=== PATIENT | male | born 1970 | race Caucasian/White ===

== ENCOUNTER 2018-08-05 20:24 | Inpatient (IN) | payer OTHER ==
[2018-08-05] MEDS ORDERED: ALBUTEROL NEBULIZED 2.5 MG/3 ML INHALATION STA (20:43)
[2018-08-05] MEDS ORDERED: IPRATROPIUM 0.5 MG/2.5 ML NEBU INHALATION STA (20:43)
[2018-08-05] MEDS ORDERED: DEXAMETHASONE SOD PHOSPHATE 10 MG/ML 1 ML VIAL IV STA (20:43)
--- NOTE | 2018-08-05 20:43 | ED ---
General Adult HPI - General Chief complaint: Shortness of Breath Stated complaint: SOB Time Seen by Provider: 08/05/18 20:32 Source: EMS Mode of arrival: EMS Limitations: no limitations - History of Present Illness Initial comments: Dictation was produced using [employer] dictation software. please excuse any grammatical, word or spelling errors. Chief Complaint: 48-year-old male past nuchal history of diabetes, dyslipidemia hypertension and asthma presents with hypoxia. History of Present Illness: Patient's 48-year-old male he has been having sinus congestion and cough for the last one week. He was seen at urgent care along with his with similar symptoms. They checked his oxygen and found to be low with the level in the 80s. Patient does not use home oxygen. Patient otherwise has been feeling well. He has no pain complaints. Patient denies any chest pain. He is also concerned that he is urinary tract infection due to urinary retention. The ROS documented in this emergency department record has been reviewed and confirmed by me. Those systems with pertinent positive or negative responses have been documented in the HPI. All other systems are other negative and/or noncontributory. PHYSICAL EXAM: General Impression: Alert and oriented x3, not in acute distress HEENT: Normocephalic atraumatic, extra-ocular movements intact, pupils equal and reactive to light bilaterally, mucous membranes moist. Cardiovascular: Heart regular rate and rhythm, S1&S2 audible, no murmurs, rubs or gallops Chest: Bilateral lung wheezing Abdomen: Bowel sounds present, abdomen soft, non-tender, non-distended, no organomegaly Musculoskeletal: Pulses present and equal in all extremities, no peripheral edema Motor: no focal deficits noted Neurological: CN II-XII grossly intact, no focal motor or sensory deficits noted Skin: Intact with no visualized rashes Psych: Normal affect and mood ED course: 48-year-old male presents with hypoxia. Vital signs upon arrival shows 90% on 2 L nasal cannula.Laboratory evaluation obtained. CBC unremarkable. Coag panel unremarkable. Metabolic panel shows mild hypomagn esemia. Otherwise rest metabolic panel is unremarkable. Cardiac enzymes negative. Prematurity peptide is negative. Urinalysis negative. X-ray obtained showing right greater than left airspace opacities concerning for pneumonia. Given patient's clinical presentation there is concern that patient has pneumonia. Patient is persistently hypoxic and requiring supplemental oxygen. Given patient's degree of hypoxia we'll have patient admitted. He is given advice for community acquired pneumonia. Patient is understandable agreeable to disposition. Discussed patient case with Dr. Souza who is willing to accept admission. EKG interpretation: Ventricular rate 90, normal sinus rhythm, right bundle branch block, KY interval 150, QS 136, QTC 477. No KY prolongation, no QTC prolongation, no ST or T-wave changes noted. EKG compared to 03/17/2015 showing no changes. Overall, this EKG is unremarkable - Related Data Home Medications Medication Instructions Recorded Confirmed ALPRAZolam [Xanax] 1 mg PO BID PRN 03/17/15 08/05/18 Cholecalciferol [Vitamin D3] 4,000 unit PO QAM 03/17/15 08/05/18 Diltiazem HCl [Cardizem] 240 mg PO QAM 03/17/15 08/05/18 Gemfibrozil [Lopid] 600 mg PO BID 03/17/15 08/05/18 Hydrochlorothiazide [Hydrodiuril] 25 mg PO QAM 03/17/15 08/05/18 Omeprazole [PriLOSEC] 40 mg PO AC-BRKFST 03/17/15 08/05/18 Pravastatin Sodium [Pravachol] 20 mg PO HS 03/17/15 08/05/18 glipiZIDE XL [Glucotrol Xl] 10 mg PO PC-SUPPER 03/17/15 08/05/18 metFORMIN HCL 1,000 mg PO BID 03/17/15 08/05/18 risperiDONE [risperiDONE ODT] 2 mg PO HS 03/17/15 08/05/18 Cetirizine HCl 10 mg PO DAILY 08/05/18 08/05/18 Fluticasone Nasal [place] [Flonase 1 spray EA NOSTRIL DAILY PRN 08/05/18 08/05/18 Nasal [place]] Ketoconazole 2% Shampoo [Nizoral] 1 applic TOPICAL MOWEFR 08/05/18 08/05/18 Losartan Potassium 50 mg PO DAILY 08/05/18 08/05/18 [place]-3 Fatty Acids/Fish Oil [Fish 1 cap PO DAILY 08/05/18 08/05/18 Oil 1,000 mg Softgel] PARoxetine HCL [Paxil Cr] 37.5 mg PO DAILY 08/05/18 08/05/18 Ranitidine HCl 150 mg PO QAM 08/05/18 08/05/18 Sucralfate [Carafate] 1 gm PO BID PRN 08/05/18 08/05/18 Allergies Allergy/AdvReac Type Severity Reaction Status Date / Time Sulfa (Sulfonamide Allergy Rash/Hives Verified 08/05/18 20:57 Antibiotics) Review of Systems ROS Statement: Those systems with pertinent positive or pertinent negative responses have been documented in the HPI. ROS Other: All systems not noted in ROS Statement are negative. Past Medical History Past Medical History: Diabetes Mellitus, Hyperlipidemia, Hypertension History of Any Multi-Drug Resistant Organisms: None Reported Past Surgical History: Tonsillectomy Past Psychological History: Anxiety, Depression Smoking Status: Current every day smoker Past Alcohol Use History: None Reported Past Drug Use History: None Reported General Exam Limitations: no limitations Course Vital Signs 08/05/18 08/05/18 08/05/18 20:26 20:39 20:55 Temperature 98.8 F Pulse Rate 98 98 Respiratory 20 20 Rate Blood Pressure 141/77 118/84 O2 Sat by Pulse 93 L Oximetry 08/05/18 08/05/18 21:30 22:10 Temperature Pulse Rate 98 98 Respiratory Rate Blood Pressure O2 Sat by Pulse Oximetry Medical Decision Making - Lab Data Result diagrams: 08/05/18 20:36 08/05/18 21:32 Lab Results 08/05/18 08/05/18 08/05/18 Range/Units 20:36 20:36 20:36 WBC 10.1 (3.8-10.6) k/uL RBC 4.86 (4.30-5.90) m/uL Hgb 15.4 (13.0-17.5) gm/dL Hct 45.2 (39.0-53.0) % MCV 93.1 (80.0-100.0) fL MCH 31.6 (25.0-35.0) pg MCHC 34.0 (31.0-37.0) g/dL RDW 13.3 (11.5-15.5) % Plt Count 234 (150-450) k/uL Neutrophils % 57 % Lymphocytes % 30 % Monocytes % 7 % Eosinophils % 3 % Basophils % 1 % Neutrophils # 5.8 (1.3-7.7) k/uL Lymphocytes # 3.0 (1.0-4.8) k/uL Monocytes # 0.7 (0-1.0) k/uL Eosinophils # 0.3 (0-0.7) k/uL Basophils # 0.1 (0-0.2) k/uL PT 10.2 (9.0-12.0) sec INR 0.9 (<1.2) APTT 24.0 (22.0-30.0) sec Sodium (137-145) mmol/L Potassium (3.5-5.1) mmol/L Chloride (98-107) mmol/L Carbon Dioxide (22-30) mmol/L Anion Gap mmol/L BUN (9-20) mg/dL Creatinine (0.66-1.25) mg/dL Est GFR (CKD-EPI)AfAm (>60 ml/min/1.73 sqM) Est GFR (CKD-EPI)NonAf (>60 ml/min/1.73 sqM) Glucose (74-99) mg/dL Calcium (8.4-10.2) mg/dL Magnesium (1.6-2.3) mg/dL Total Bilirubin (0.2-1.3) mg/dL AST (17-59) U/L ALT (21-72) U/L Alkaline Phosphatase (38-126) U/L Troponin I (0.000-0.034) ng/mL NT-Pro-B Natriuret Pep pg/mL Total Protein (6.3-8.2) g/dL Albumin (3.5-5.0) g/dL Urine Color Light Yellow Urine Appearance Clear (Clear) Urine pH 6.0 (5.0-8.0) Ur Specific [place] 1.004 (1.001-1.035) Urine Protein Negative (Negative) Urine Glucose (UA) Negative (Negative) Urine Ketones Negative (Negative) Urine Blood Negative (Negative) Urine Nitrite Negative (Negative) Urine Bilirubin Negative (Negative) Urine Urobilinogen <2.0 (<2.0) mg/dL Ur Leukocyte Esterase Negative (Negative) 08/05/18 08/05/18 08/05/18 Range/Units 21:32 21:32 21:32 WBC (3.8-10.6) k/uL RBC (4.30-5.90) m/uL Hgb (13.0-17.5) gm/dL Hct (39.0-53.0) % MCV (80.0-100.0) fL MCH (25.0-35.0) pg MCHC (31.0-37.0) g/dL RDW (11.5-15.5) % Plt Count (150-450) k/uL Neutrophils % % Lymphocytes % % Monocytes % % Eosinophils % % Basophils % % Neutrophils # (1.3-7.7) k/uL Lymphocytes # (1.0-4.8) k/uL Monocytes # (0-1.0) k/uL Eosinophils # (0-0.7) k/uL Basophils # (0-0.2) k/uL PT (9.0-12.0) sec INR (<1.2) APTT (22.0-30.0) sec Sodium 136 L (137-145) mmol/L Potassium 4.1 (3.5-5.1) mmol/L Chloride 100 (98-107) mmol/L Carbon Dioxide 25 (22-30) mmol/L Anion Gap 11 mmol/L BUN 9 (9-20) mg/dL Creatinine 0.59 L (0.66-1.25) mg/dL Est GFR (CKD-EPI)AfAm >90 (>60 ml/min/1.73 sqM) Est GFR (CKD-EPI)NonAf >90 (>60 ml/min/1.73 sqM) Glucose 132 H (74-99) mg/dL Calcium 9.5 (8.4-10.2) mg/dL Magnesium 1.5 L (1.6-2.3) mg/dL Total Bilirubin 0.4 (0.2-1.3) mg/dL AST 23 (17-59) U/L ALT 41 (21-72) U/L Alkaline Phosphatase 67 (38-126) U/L Troponin I <0.012 (0.000-0.034) ng/mL NT-Pro-B Natriuret Pep 55 pg/mL Total Protein 6.9 (6.3-8.2) g/dL Albumin 4.3 (3.5-5.0) g/dL Urine Color Urine Appearance (Clear) Urine pH (5.0-8.0) Ur Specific [place] (1.001-1.035) Urine Protein (Negative) Urine Glucose (UA) (Negative) Urine Ketones (Negative) Urine Blood (Negative) Urine Nitrite (Negative) Urine Bilirubin (Negative) Urine Urobilinogen (<2.0) mg/dL Ur Leukocyte Esterase (Negative) Disposition Clinical Impression: Acute respiratory failure with hypoxia, Pneumonia Disposition: ADMITTED IP TO THIS HOSP Condition: Fair Referrals: Eris Jc MD [Primary Care Provider] - 1-2 days Decision Time: 23:23
[2018-08-05 20:59] LABS: Basophils # (A) 0.1 k/uL (0-0.2); Basophils % (A) 1 %; Eosinophils # (A) 0.3 k/uL (0-0.7); Eosinophils % (A) 3 %; HCT 45.2 % (39.0-53.0); HGB 15.4 gm/dL (13.0-17.5); Lymphocytes % (A) 30 %; MCH 31.6 pg (25.0-35.0); MCV 93.1 fL (80.0-100.0); Mean Platelet Volume 10.3; Monocytes # (A) 0.7 k/uL (0-1.0); Monocytes % (A) 7 %; Neutrophils # (A) 5.8 k/uL (1.3-7.7); Neutrophils % (A) 57 %; Platelet Count 234 k/uL (150-450); RBC 4.86 m/uL (4.30-5.90); RDW 13.3 % (11.5-15.5); WBC 10.1 k/uL (3.8-10.6)
[2018-08-05 21:04] LABS: Appearance,Urine Clear (Clear); Bilirubin,Urine Negative (Negative); Blood,Urine Negative (Negative); Color,Urine Light Yellow; Glucose,Urine (UA) Negative (Negative); Ketones,Urine Negative (Negative); Leukocyte Esterase,Urine Negative (Negative); Nitrite,Urine Negative (Negative); Protein,Urine Negative (Negative); Specific Gravity,Urine 1.004 (1.001-1.035); Urobilinogen,Urine <2.0 mg/dL (<2.0)
[2018-08-05 21:27] LABS: INR 0.9 (<1.2); Prothrombin Time 10.2 sec (9.0-12.0)
[2018-08-05 22:20] LABS: ALT 41 U/L (21-72); AST 23 U/L (17-59); Albumin 4.3 g/dL (3.5-5.0); Alkaline Phosphatase 67 U/L (38-126); Anion Gap 11 mmol/L; Blood Urea Nitrogen 9 mg/dL (9-20); Calcium 9.5 mg/dL (8.4-10.2); Carbon Dioxide 25 mmol/L (22-30); Chloride 100 mmol/L (98-107); Glucose 132 mg/dL (74-99); Magnesium 1.5 mg/dL (1.6-2.3); Potassium 4.1 mmol/L (3.5-5.1); Sodium 136 mmol/L (137-145); Total Bilirubin 0.4 mg/dL (0.2-1.3); Total Protein 6.9 g/dL (6.3-8.2)
--- NOTE | 2018-08-05 22:46 | XR ---
INDICATION: Difficulty breathing COMPARISON: CXR 03/17/15 FINDINGS: Frontal and lateral views of the chest are obtained. There is airspace opacity in the lower lobes, right greater than left, concerning for pneumonia in the proper clinical setting. There is no pleural effusion or pneumothorax. Cardiomediastinal silhouette and pulmonary vascularity are normal. Regional skeleton appears intact. IMPRESSION: Right greater than left lower lobe airspace opacities, concerning for pneumonia in the proper clinical setting.
[2018-08-05] MEDS ORDERED: AZITHROMYCIN 500 MG in SODIUM CHLORIDE 0.9% 250 ML IVPB STA (23:09)
[2018-08-05] MEDS ORDERED: PNEUMONIA PROTOCOL UTILIZED 1 EACH MISC PO PRN (23:24)
[2018-08-06] MEDS ORDERED: ALPRAZolam 1 MG TAB PO PRN (00:07)
[2018-08-06] MEDS ORDERED: IPRATROPIUM-ALBUTEROL 3 ML NEB INHALATION PRN (00:12)
--- NOTE | 2018-08-06 00:18 | P.HPIM ---
History of Present Illness H&P Date: 08/05/18 Chief Complaint: Shortness of breath and cough The patient is a morbidly obese 48-year-old male with a past medical history of asthma, type 2 diabetes, essential hypertension who was referred here from his [facility] urgent care clinic with chief complaints of cough and shortness of breath. Apparently the patient has been having a week of intermittently productive cough and worsening shortness of breath, chest congestion and sore throat and increasing usage of his rescue inhaler and updrafts at home, he reports subjective fevers chills night sweats. The patient reports increasing polyuria and nocturia but denies any dysuria or increasing thirst . The patient denies any chest pain, lower extremity swelling or palpitations. He denies any headaches slurred speech focal weakness or blurry vision. Apparently while at urgent care the patient was noted to have diminished oxygen saturations the SpO2 in the low 80s. He reports his has been having similar URI symptoms. In the ER the patient had a comprehensive workup, chest x-ray showed a right greater than left lower lobe airspace opacities. Serum sodium level was 136 magnesium 1.5, WBC count 10.1, hemoglobin 15.4, platelets 234. EKG showed sinus mechanism without any suggestion of acute ischemia. Patient was recommended for admission Review of Systems Pertinent positives per HPI all other review of systems otherwise negative Past Medical History Past Medical History: Diabetes Mellitus, Hyperlipidemia, Hypertension History of Any Multi-Drug Resistant Organisms: None Reported Past Surgical History: Tonsillectomy Past Psychological History: Anxiety, Depression Smoking Status: Current every day smoker Past Alcohol Use History: None Reported Past Drug Use History: None Reported Medications and Allergies Home Medications Medication Instructions Recorded Confirmed Type ALPRAZolam [Xanax] 1 mg PO BID PRN 03/17/15 08/05/18 History Cholecalciferol [Vitamin D3] 4,000 unit PO QAM 03/17/15 08/05/18 History Diltiazem HCl [Cardizem] 240 mg PO QAM 03/17/15 08/05/18 History Gemfibrozil [Lopid] 600 mg PO BID 03/17/15 08/05/18 History Hydrochlorothiazide [Hydrodiuril] 25 mg PO QAM 03/17/15 08/05/18 History Omeprazole [PriLOSEC] 40 mg PO AC-BRKFST 03/17/15 08/05/18 History Pravastatin Sodium [Pravachol] 20 mg PO HS 03/17/15 08/05/18 History glipiZIDE XL [Glucotrol Xl] 10 mg PO PC-SUPPER 03/17/15 08/05/18 History metFORMIN HCL 1,000 mg PO BID 03/17/15 08/05/18 History risperiDONE [risperiDONE ODT] 2 mg PO HS 03/17/15 08/05/18 History Cetirizine HCl 10 mg PO DAILY 08/05/18 08/05/18 History Fluticasone Nasal [place] [Flonase 1 spray EA NOSTRIL DAILY PRN 08/05/18 08/05/18 History Nasal [place]] Ketoconazole 2% Shampoo [Nizoral] 1 applic TOPICAL MOWEFR 08/05/18 08/05/18 History Losartan Potassium 50 mg PO DAILY 08/05/18 08/05/18 History [place]-3 Fatty Acids/Fish Oil [Fish 1 cap PO DAILY 08/05/18 08/05/18 History Oil 1,000 mg Softgel] PARoxetine HCL [Paxil Cr] 37.5 mg PO DAILY 08/05/18 08/05/18 History Ranitidine HCl 150 mg PO QAM 08/05/18 08/05/18 History Sucralfate [Carafate] 1 gm PO BID PRN 08/05/18 08/05/18 History Allergies Allergy/AdvReac Type Severity Reaction Status Date / Time Sulfa (Sulfonamide Allergy Rash/Hives Verified 08/05/18 20:57 Antibiotics) Physical Exam Vitals: Vital Signs Temp Pulse Resp BP Pulse Ox 08/05/18 22:10 98 08/05/18 21:30 98 08/05/18 20:55 98 08/05/18 20:39 20 118/84 08/05/18 20:26 98.8 F 98 20 141/77 93 L Intake and Output 08/05/18 08/05/18 08/06/18 14:59 22:59 06:59 Other: Weight 150.593 kg Constitutional: No acute distress, conversant, pleasant Eyes: Anicteric sclerae, moist conjunctiva, no lid-lag, PERRLA ENMT: NC/AT,Oropharynx clear, no erythema, exudates Neck:Supple, FROM, no masses, or JVD, No carotid bruits; No thyromegaly Lungs: Diminished in the bases, faint wheezes, poor aeration, satting 89% on 4 L nasal cannula, unlabored Cardiovascular: Heart regular in rate and rhythm, No murmurs, gallops, or rubs no peripheral edema Abdominal: Soft Nontender, nom distended, no guarding, no rebound or rigidity, Normoactive bowel sounds No hepatomegaly, No splenomegaly, No palpable mass No abdominal wall hernia noted Skin: Normal temperature, tone, texture, turgor, No induration No subcutaneous nodules, No rash, lesions, No ulcers Extremities:No digital cyanosis No clubbing, Pedal pulses intact and symmetrical Radial pulses intact and symmetrical Normal gait and station, No calf tenderness Psychiatric: Alert and oriented to person, place and time, Appropriate affect Intact judgement Neuro: Muscles Strength 5/5 in all 4 extremities, Sensation to light touch grossly present throughout, Cranial nerves II-XII grossly intact. No focal sensory deficits Results CBC & Chem 7: 08/05/18 20:36 08/05/18 21:32 Labs: Abnormal Lab Results - Last 24 Hours (Table) 08/05/18 Range/Units 21:32 Sodium 136 L (137-145) mmol/L Creatinine 0.59 L (0.66-1.25) mg/dL Glucose 132 H (74-99) mg/dL Magnesium 1.5 L (1.6-2.3) mg/dL Assessment and Plan (1) Acute respiratory failure with hypoxia Current Visit: Yes Status: Acute Code(s): J96.01 - ACUTE RESPIRATORY FAILURE WITH HYPOXIA SNOMED Code(s): 62703981 (2) Pneumonia Current Visit: Yes Status: Acute Code(s): J18.9 - PNEUMONIA, UNSPECIFIED ORGANISM SNOMED Code(s): 810544780 (3) Asthma exacerbation Current Visit: Yes Status: Acute Code(s): J45.901 - UNSPECIFIED ASTHMA WITH (ACUTE) EXACERBATION SNOMED Code(s): 927737631 (4) Type 2 diabetes mellitus with hyperglycemia Current Visit: Yes Status: Acute Code(s): E11.65 - TYPE 2 DIABETES MELLITUS WITH HYPERGLYCEMIA SNOMED Code(s): 504457256710535 (5) Hypomagnesemia Current Visit: Yes Status: Acute Code(s): E83.42 - HYPOMAGNESEMIA SNOMED Code(s): 334066596 Plan: The patient is placed on observation anticipated less than 2 midnight stay with acute respiratory failure with hypoxia in the setting of a community-acquired pneumonia and mild asthma exacerbation, the patient is continued on supplemental oxygen we'll wean to keep sats 90-92%, currently unlabored on 4 L nasal cannula. Initiate bronchodilator DuoNeb breathing treatments every 4 hours amd PRN with empiric IV antibiotics Rocephin and azithromycin, continue steroids with prednisone 40 mg by mouth daily, add mucinex. Continue home meds, initiate Accuchecks qachs with correctional insulin coverage. Will replace his magnesium and we'll continue to follow his clinical course CODE STATUS: Full code Discussed plan of care with: Patient and nurse Prophylaxis: SCDs and Lovenox and PPI therapy Anticipated discharge 1-2 day Time with Patient: Greater than 30
[2018-08-06] MEDS: MAGNESIUM SULFATE-D5W PMX 1 GM in DEXTROSE/WATER 1 100ML.BAG IVPB SCH ×3 (01:24→04:14)
[2018-08-06] MEDS: IPRATROPIUM-ALBUTEROL 3 ML NEB INHALATION SCH ×5 (05:14→21:26)
[2018-08-06 07:13] LABS: Glucose,Whole Blood 261 mg/dL (75-99)
[2018-08-06] MEDS: ENOXAPARIN 40 MG/0.4 ML SYRINGE SQ SCH (08:21)
[2018-08-06] MEDS: PANTOPRAZOLE 40 MG TABLET PO SCH (08:21)
[2018-08-06] MEDS: DILTIAZEM CD 240 MG CAP.ER.24H PO SCH (08:21)
[2018-08-06] MEDS: AZITHROMYCIN 500 MG TAB PO SCH (08:21)
[2018-08-06] MEDS: CHOLECALCIFEROL 1,000 UNIT TAB PO SCH (08:21)
[2018-08-06] MEDS: glipiZIDE 5 MG TAB PO SCH ×2 (08:21→17:25)
[2018-08-06] MEDS: PARoxetine 10 MG TAB PO SCH (08:22)
[2018-08-06] MEDS: metFORMIN 500 MG TAB PO SCH ×2 (08:22→21:24)
[2018-08-06] MEDS: LORATADINE 10 MG TAB PO SCH (08:22)
[2018-08-06] MEDS: guaiFENesin 600 MG TABLET.ER PO SCH ×2 (08:22→21:24)
[2018-08-06] MEDS: LOSARTAN 50 MG TAB PO SCH (08:22)
[2018-08-06] MEDS: HYDROCHLOROTHIAZIDE 25 MG TAB PO SCH (08:22)
[2018-08-06] MEDS: FENOFIBRATE 160 MG TAB PO SCH (08:22)
[2018-08-06] MEDS: KETOCONAZOLE 2% SHAMPOO 1 APPLIC/ML TOPICAL SCH (08:23)
[2018-08-06] MEDS: INSULIN ASPART (NovoLOG) 100 UNIT/ML VIAL SQ SCH ×4 (08:23→21:24)
[2018-08-06] MEDS ORDERED: SUCRALFATE 1 GM TAB PO PRN (09:00)
[2018-08-06] MEDS ORDERED: NON-FORMULARY DRUG (Omega-3 Fatty Acids/Fish Oil [Fish Oil 1,000 Mg Softgel] 1 CAP) PO SCH (09:00)
[2018-08-06] MEDS ORDERED: FLUTICASONE 50MCG/SPRAY NASAL 16GM EA NOSTRIL PRN (09:00)
[2018-08-06] MEDS ORDERED: predniSONE 20 MG TAB PO SCH (09:00)
[2018-08-06] MEDS ORDERED: NON-FORMULARY DRUG (Ranitidine Hcl [Ranitidine Hcl] 150 MG) PO SCH (09:00)
[2018-08-06 09:50] LABS: Basophils % (A) 0 %; Eosinophils % (A) 0 %; HCT 49.2 % (39.0-53.0); HGB 16.1 gm/dL (13.0-17.5); Lymphocytes # (A) 0.8 k/uL (1.0-4.8); Lymphocytes % (A) 9 %; MCH 31.6 pg (25.0-35.0); MCHC 32.7 g/dL (31.0-37.0); MCV 96.5 fL (80.0-100.0); Mean Platelet Volume 6.7; Monocytes # (A) 0.4 k/uL (0-1.0); Monocytes % (A) 4 %; Neutrophils # (A) 7.9 k/uL (1.3-7.7); Neutrophils % (A) 86 %; Platelet Count 253 k/uL (150-450); WBC 9.1 k/uL (3.8-10.6)
[2018-08-06 10:27] LABS: Anion Gap 13 mmol/L; Blood Urea Nitrogen 9 mg/dL (9-20); Calcium 9.5 mg/dL (8.4-10.2); Carbon Dioxide 27 mmol/L (22-30); Chloride 100 mmol/L (98-107); Glucose 250 mg/dL (74-99); Magnesium 2.4 mg/dL (1.6-2.3); Potassium 5.1 mmol/L (3.5-5.1); Sodium 140 mmol/L (137-145)
[2018-08-06] MEDS: methylPREDNISolone SOD SUCCI 125 MG/2 ML VIAL IV SCH ×2 (11:25→17:24)
[2018-08-06 12:02] LABS: Glucose,Whole Blood 184 mg/dL (75-99)
--- NOTE | 2018-08-06 15:57 | P.PN ---
Subjective Progress Note Date: 08/06/18 The patient was seen and examined at bedside on 08/06/2018. He reports continued mild shortness of breath with cough, which is improved since admission. He otherwise denied chest pain, nausea, vomiting, palpitations, fever, or chills. Objective - Vital Signs Vital signs: Vital Signs Temp 97.9 F 08/06/18 14:11 Pulse 93 08/06/18 14:11 Resp 18 08/06/18 14:11 BP 174/84 08/06/18 14:11 Pulse Ox 92 L 08/06/18 14:11 Intake & Output 08/05/18 08/06/18 08/06/18 18:59 06:59 18:59 Intake Total 1780 Balance 1780 Weight 150.593 kg Intake: Intake, IV Titration 700 Amount Azithromycin 500 mg In 250 Sodium Chloride 0.9% 250 ml @ 250 mls/hr IVPB ONCE STA Rx#:[id number] Magnesium Sulfate-D5w Pmx 400 1 gm In Dextrose/Water 1 100ml.bag @ 100 mls/hr IVPB Q1H CARMELLA Rx#: [id number] cefTRIAXone 1 gm In 50 Sodium Chloride 0.9% 50 ml @ 100 mls/hr IVPB ONCE STA Rx#:[id number] Oral 1080 Other: Voiding Method Toilet Toilet # Voids 2 2 - Exam General: Non-toxic, in no acute distress, appears stated age, morbidly obese HEENT: NC/AT, anicteric sclerae, moist conjunctiva, no lid-lag, PERRLA Cardiovascular: S1/S2 wnl, no murmurs, rubs, or gallops Lungs: Poor air entry bilaterally with wheezing appreciated, no accessory muscle use Abdominal: Soft, non-tender, non-distended, no guarding, rebound, or rigidity Skin: Warm, dry Extremities: No edema or contractures Psychiatric: Alert and oriented to person, place and time, appropriate affect Neuro: CN II-XII grossly intact, Strength 5/5 in all 4 extremities, Speech intact, Sensation to light touch grossly intact throughout - Labs CBC & Chem 7: 08/06/18 08:51 08/06/18 08:51 Labs: Abnormal Lab Results - Last 24 Hours (Table) 08/05/18 08/06/18 08/06/18 Range/Units 21:32 06:57 08:51 Neutrophils # 7.9 H (1.3-7.7) k/uL Lymphocytes # 0.8 L (1.0-4.8) k/uL Sodium 136 L (137-145) mmol/L Creatinine 0.59 L (0.66-1.25) mg/dL Glucose 132 H (74-99) mg/dL POC Glucose (mg/dL) 261 H (75-99) mg/dL Magnesium 1.5 L (1.6-2.3) mg/dL 08/06/18 08/06/18 Range/Units 08:51 11:43 Neutrophils # (1.3-7.7) k/uL Lymphocytes # (1.0-4.8) k/uL Sodium (137-145) mmol/L Creatinine 0.53 L (0.66-1.25) mg/dL Glucose 250 H (74-99) mg/dL POC Glucose (mg/dL) 184 H (75-99) mg/dL Magnesium 2.4 H (1.6-2.3) mg/dL Assessment and Plan Plan: Acute hypoxic respiratory failure secondary to asthma exacerbation and community acquired pneumonia -Continue with antibiotics, azithromycin and Cefdinir -Switched to IV Solu-Medrol 60 mg every 6 hourly due to significantly poor air entry on examination -Continue supplemental oxygen -Continue with DuoNeb's [id number] and as needed -Continue with Flonase Chronic conditions; hypertension, hyperlipidemia, diabetes mellitus -Continue with home medications DVT//GI prophylaxis -Lovenox -Protonix Discussed with: Patient Anticipated discharge date: 08/08/[address]: Home A total of 35 minutes was spent on the care of this complex patient more than 50% of the time was spent in counseling and care coordination.
[2018-08-06 17:12] LABS: Glucose,Whole Blood 259 mg/dL (75-99)
[2018-08-06 21:09] LABS: Glucose,Whole Blood 262 mg/dL (75-99)
[2018-08-06] MEDS: PRAVASTATIN SODIUM 20 MG TAB PO SCH (21:24)
[2018-08-06] MEDS: CEFDINIR 300 MG CAP PO SCH (21:24)
[2018-08-06] MEDS: risperiDONE ODT 2 MG TAB PO SCH (21:30)
[2018-08-07] MEDS: methylPREDNISolone SOD SUCCI 125 MG/2 ML VIAL IV SCH ×4 (00:54→17:50)
[2018-08-07] MEDS: IPRATROPIUM-ALBUTEROL 3 ML NEB INHALATION SCH ×6 (00:54→20:31)
[2018-08-07 07:00] LABS: Glucose,Whole Blood 255 mg/dL (75-99)
[2018-08-07 08:26] LABS: HCT 46.5 % (39.0-53.0); HGB 15.5 gm/dL (13.0-17.5); MCH 31.7 pg (25.0-35.0); MCHC 33.3 g/dL (31.0-37.0); MCV 95.2 fL (80.0-100.0); Mean Platelet Volume 6.7; Platelet Count 253 k/uL (150-450); RBC 4.89 m/uL (4.30-5.90); RDW 12.9 % (11.5-15.5); WBC 12.3 k/uL (3.8-10.6)
[2018-08-07 09:05] LABS: Anion Gap 10 mmol/L; Blood Urea Nitrogen 14 mg/dL (9-20); Calcium 9.8 mg/dL (8.4-10.2); Carbon Dioxide 29 mmol/L (22-30); Chloride 100 mmol/L (98-107); Glucose 258 mg/dL (74-99); Potassium 4.6 mmol/L (3.5-5.1); Sodium 139 mmol/L (137-145)
[2018-08-07] MEDS: INSULIN ASPART (NovoLOG) 100 UNIT/ML VIAL SQ SCH ×4 (10:27→22:23)
[2018-08-07] MEDS: PANTOPRAZOLE 40 MG TABLET PO SCH (10:28)
[2018-08-07] MEDS: glipiZIDE 5 MG TAB PO SCH ×2 (10:28→17:51)
[2018-08-07] MEDS: AZITHROMYCIN 500 MG TAB PO SCH (10:29)
[2018-08-07] MEDS: CHOLECALCIFEROL 1,000 UNIT TAB PO SCH (10:29)
[2018-08-07] MEDS: LORATADINE 10 MG TAB PO SCH (10:30)
[2018-08-07] MEDS: FENOFIBRATE 160 MG TAB PO SCH (10:30)
[2018-08-07] MEDS: HYDROCHLOROTHIAZIDE 25 MG TAB PO SCH (10:30)
[2018-08-07] MEDS: ENOXAPARIN 40 MG/0.4 ML SYRINGE SQ SCH (10:30)
[2018-08-07] MEDS: DILTIAZEM CD 240 MG CAP.ER.24H PO SCH (10:30)
[2018-08-07] MEDS: guaiFENesin 600 MG TABLET.ER PO SCH ×2 (10:30→22:20)
[2018-08-07] MEDS: LOSARTAN 50 MG TAB PO SCH (10:31)
[2018-08-07] MEDS: PARoxetine 10 MG TAB PO SCH (10:31)
[2018-08-07] MEDS: metFORMIN 500 MG TAB PO SCH ×2 (10:31→22:20)
[2018-08-07] MEDS: CEFDINIR 300 MG CAP PO SCH ×2 (10:35→22:20)
[2018-08-07 11:44] LABS: Glucose,Whole Blood 268 mg/dL (75-99)
--- NOTE | 2018-08-07 14:36 | P.PN ---
Subjective Progress Note Date: 08/07/18 The patient was seen and examined at bedside on 08/07/2018. The patient notes that his shortness of breath has improved since admission though he continues to require oxygen with minimal exertion. He otherwise denied chest pain, palpitations, abdominal pain, nausea, vomiting, fever, or chills. Objective - Vital Signs Vital signs: Vital Signs Temp 98.3 F 08/07/18 07:00 Pulse 90 08/07/18 11:19 Resp 16 08/07/18 08:17 BP 166/70 08/07/18 07:00 Pulse Ox 92 L 08/07/18 07:00 Intake & Output 08/06/18 08/07/18 08/07/18 18:59 06:59 18:59 Intake Total 540 Balance 540 Intake: Oral 540 Other: Voiding Method Toilet Toilet Toilet # Voids 2 1 - Exam General: Non-toxic, in no acute distress, appears stated age, morbidly obese HEENT: NC/AT, anicteric sclerae, moist conjunctiva, no lid-lag, PERRLA Cardiovascular: S1/S2 wnl, no murmurs, rubs, or gallops Lungs: improved aeration w/ wheezing appreciated, no accessory muscle use Abdominal: Soft, non-tender, non-distended, no guarding, rebound, or rigidity Skin: Warm, dry Extremities: No edema or contractures Psychiatric: Alert and oriented to person, place and time, appropriate affect Neuro: CN II-XII grossly intact, Strength 5/5 in all 4 extremities, Speech intact, Sensation to light touch grossly intact throughout - Labs CBC & Chem 7: 08/07/18 07:50 08/07/18 07:50 Labs: Abnormal Lab Results - Last 24 Hours (Table) 08/06/18 08/06/18 08/07/18 Range/Units 17:09 21:07 06:58 WBC (3.8-10.6) k/uL Creatinine (0.66-1.25) mg/dL Glucose (74-99) mg/dL POC Glucose (mg/dL) 259 H 262 H 255 H (75-99) mg/dL 08/07/18 08/07/18 08/07/18 Range/Units 07:50 07:50 11:42 WBC 12.3 H (3.8-10.6) k/uL Creatinine 0.52 L (0.66-1.25) mg/dL Glucose 258 H (74-99) mg/dL POC Glucose (mg/dL) 268 H (75-99) mg/dL Microbiology - Last 24 Hours (Table) 08/05/18 21:04 Blood Culture - Preliminary Blood No Growth after 24 hours Assessment and Plan Plan: Acute hypoxic respiratory failure secondary to asthma exacerbation and community acquired pneumonia -Continue with antibiotics, azithromycin and Cefdinir -C/w Solumedrol 60 mg q6h -Continue supplemental oxygen -Continue with DuoNeb's [id number] and as needed -Continue with Flonase Chronic conditions; hypertension, hyperlipidemia, diabetes mellitus -Continue with home medications DVT//GI prophylaxis -Lovenox -Protonix Discussed with: Patient Anticipated discharge date: 08/08/[address]: Home A total of 35 minutes was spent on the care of this complex patient more than 50% of the time was spent in counseling and care coordination.
[2018-08-07 16:52] LABS: Glucose,Whole Blood 196 mg/dL (75-99)
[2018-08-07 20:26] LABS: Glucose,Whole Blood 225 mg/dL (75-99)
[2018-08-07] MEDS: PRAVASTATIN SODIUM 20 MG TAB PO SCH (22:20)
[2018-08-07] MEDS: risperiDONE ODT 2 MG TAB PO SCH (22:20)
[2018-08-08] MEDS: IPRATROPIUM-ALBUTEROL 3 ML NEB INHALATION SCH ×5 (00:51→15:28)
[2018-08-08] MEDS: methylPREDNISolone SOD SUCCI 125 MG/2 ML VIAL IV SCH ×3 (00:56→11:22)
[2018-08-08 01:44] VITALS: RESP 15
[2018-08-08 06:46] LABS: Glucose,Whole Blood 272 mg/dL (75-99)
[2018-08-08] MEDS: INSULIN ASPART (NovoLOG) 100 UNIT/ML VIAL SQ SCH ×2 (08:07→11:43)
[2018-08-08] MEDS: LOSARTAN 50 MG TAB PO SCH (08:09)
[2018-08-08] MEDS: ENOXAPARIN 40 MG/0.4 ML SYRINGE SQ SCH (08:09)
[2018-08-08] MEDS: PANTOPRAZOLE 40 MG TABLET PO SCH (08:09)
[2018-08-08] MEDS: HYDROCHLOROTHIAZIDE 25 MG TAB PO SCH (08:09)
[2018-08-08] MEDS: CHOLECALCIFEROL 1,000 UNIT TAB PO SCH (08:09)
[2018-08-08] MEDS: metFORMIN 500 MG TAB PO SCH (08:09)
[2018-08-08] MEDS: glipiZIDE 5 MG TAB PO SCH (08:09)
[2018-08-08] MEDS: CEFDINIR 300 MG CAP PO SCH (08:10)
[2018-08-08] MEDS: DILTIAZEM CD 240 MG CAP.ER.24H PO SCH (08:10)
[2018-08-08] MEDS: FENOFIBRATE 160 MG TAB PO SCH (08:10)
[2018-08-08] MEDS: LORATADINE 10 MG TAB PO SCH (08:10)
[2018-08-08] MEDS: AZITHROMYCIN 500 MG TAB PO SCH (08:10)
[2018-08-08] MEDS: PARoxetine 10 MG TAB PO SCH (08:11)
[2018-08-08] MEDS: KETOCONAZOLE 2% SHAMPOO 1 APPLIC/ML TOPICAL SCH (08:12)
[2018-08-08] MEDS: guaiFENesin 600 MG TABLET.ER PO SCH (08:17)
--- NOTE | 2018-08-08 10:23 | P.DS ---
Providers Date of admission: 08/05/18 23:24 Expected date of discharge: 08/08/18 Attending physician: Enzo Tiwari MD Primary care physician: Eris Rod Babita [facility] Course: This is a 48-year-old male with a past medical history of COPD, history of 30-40 pack years smoking, hypertension and diabetes mellitus who presented to the ED for shortness of breath. The patient also had reported intermittent productive cough with chest congestion, sore throat, and increasing use of his rescue inhalers along with subjective fever and chills. The patient was previously evaluated at an urgent care center where apparently he had SpO2 in the low 80s and he was thereby brought to the ED. The patient underwent an extensive evaluation in the ED and had a chest x-ray with right greater than left lower lobe airspace opacities, suspicious for pneumonia. Patient was also noted to have bilateral wheezing and hypoxia, to 93% while on 4 L of nasal cannula. The patient was subsequently admitted to the medicine service for continued acquired pneumonia and a COPD exacerbation. He was started on antibiotics and placed on IV Solu-Medrol. The patient's breathing gradually improved though he continued to require oxygen. Patient was seen and examined at the bedside on 08/08/2018, at the day of discharge. He reports that his breathing is improved significantly since admission and his cough is also decreased. Discussed with the patient continued requirement for oxygen. The patient expressed eagerness to be discharged home and was in agreement with the plan to continue to use the nasal cannula oxygen upon discharge and with subsequent follow-up with a pulmonary physician as an outpatient along with his PCP to reassess for need for oxygen. The patient is presently stable and ready for discharge to home with oral antibiotics and a steroid burst taper. Physical Examination General: Non-toxic, in no acute distress, appears stated age, obese HEENT: NC/AT, anicteric sclerae, moist conjunctiva, no lid-lag, PERRLA Cardiovascular: S1/S2 wnl, no murmurs, rubs, or gallops Lungs: Clear to auscultation, normal respiratory effort, no accessory muscle use Abdominal: Soft, non-tender, non-distended, no guarding, rebound, or rigidity Skin: Warm, dry Extremities: No edema or contractures Psychiatric: Alert and oriented to person, place and time, appropriate affect Neuro: CN II-XII grossly intact, Strength 5/5 in all 4 extremities, Speech intact, Sensation to light touch grossly intact throughout Discharge diagnosis: Hypoxic respiratory failure secondary to COPD exacerbation and community-acquired pneumonia, diabetes mellitus with hyperglycemia, hypertension A total of 40 minutes of time were spent preparing this complex discharge summary. Patient Condition at Discharge: Good Plan - Discharge Summary Discharge Rx Participant: No New Discharge Prescriptions: New Albuterol Sulfate [Albuterol Sulfate Hfa] 1 puff PO Q4H #1 inhaler Amoxic-Pot Clav 875-125Mg [Augmentin 875-125] 1 tab PO BID 2 Days #4 tab guaiFENesin [Mucinex] 1,200 mg PO Q12HR #14 tablet.er predniSONE 0 mg PO DIRECTED #30 tab Budesonide-Formot 160-4.5 Mcg [Symbicort 160-4.5 Mcg Inhaler] 2 puff INHALATION BID #1 inhaler Continue risperiDONE [risperiDONE ODT] 2 mg PO HS ALPRAZolam [Xanax] 1 mg PO BID PRN PRN Reason: Anxiety glipiZIDE XL [Glucotrol XL] 10 mg PO PC-SUPPER metFORMIN HCL 1,000 mg PO BID Pravastatin Sodium [Pravachol] 20 mg PO HS Gemfibrozil [Lopid] 600 mg PO BID Cholecalciferol [Vitamin D3 (25 Mcg = 1000 Iu)] 4,000 unit PO QAM Omeprazole [PriLOSEC] 40 mg PO AC-BRKFST Hydrochlorothiazide [Hydrodiuril] 25 mg PO QAM Diltiazem HCl [Cardizem] 240 mg PO QAM Sucralfate [Carafate] 1 gm PO BID PRN PRN Reason: Gi Upset Ranitidine HCl 150 mg PO QAM PARoxetine HCL [Paxil Cr] 37.5 mg PO DAILY Losartan Potassium 50 mg PO DAILY Ketoconazole 2% Shampoo [Nizoral] 1 applic TOPICAL MOWEFR [place]-3 Fatty Acids/Fish Oil [Fish Oil 1,000 mg Softgel] 1 cap PO DAILY Fluticasone Nasal [place] [Flonase Nasal [place]] 1 spray EA NOSTRIL DAILY PRN PRN Reason: Nasal Congestion Cetirizine HCl 10 mg PO DAILY Discharge Medication List ALPRAZolam [Xanax] 1 mg PO BID PRN 03/17/15 [History] Cholecalciferol [Vitamin D3 (25 Mcg = 1000 Iu)] 4,000 unit PO QAM 03/17/15 [History] Diltiazem HCl [Cardizem] 240 mg PO QAM 03/17/15 [History] Gemfibrozil [Lopid] 600 mg PO BID 03/17/15 [History] Hydrochlorothiazide [Hydrodiuril] 25 mg PO QAM 03/17/15 [History] Omeprazole [PriLOSEC] 40 mg PO AC-BRKFST 03/17/15 [History] Pravastatin Sodium [Pravachol] 20 mg PO HS 03/17/15 [History] glipiZIDE XL [Glucotrol XL] 10 mg PO PC-SUPPER 03/17/15 [History] metFORMIN HCL 1,000 mg PO BID 03/17/15 [History] risperiDONE [risperiDONE ODT] 2 mg PO HS 03/17/15 [History] Cetirizine HCl 10 mg PO DAILY 08/05/18 [History] Fluticasone Nasal [place] [Flonase Nasal [place]] 1 spray EA NOSTRIL DAILY PRN 08/05/18 [History] Ketoconazole 2% Shampoo [Nizoral] 1 applic TOPICAL MOWEFR 08/05/18 [History] Losartan Potassium 50 mg PO DAILY 08/05/18 [History] [place]-3 Fatty Acids/Fish Oil [Fish Oil 1,000 mg Softgel] 1 cap PO DAILY 08/05/18 [History] PARoxetine HCL [Paxil Cr] 37.5 mg PO DAILY 08/05/18 [History] Ranitidine HCl 150 mg PO QAM 08/05/18 [History] Sucralfate [Carafate] 1 gm PO BID PRN 08/05/18 [History] Albuterol Sulfate [Albuterol Sulfate Hfa] 1 puff PO Q4H #1 inhaler 08/08/18 [Rx] Amoxic-Pot Clav 875-125Mg [Augmentin 875-125] 1 tab PO BID 2 Days #4 tab 08/08/18 [Rx] Budesonide-Formot 160-4.5 Mcg [Symbicort 160-4.5 Mcg Inhaler] 2 puff INHALATION BID #1 inhaler 08/08/18 [Rx] guaiFENesin [Mucinex] 1,200 mg PO Q12HR #14 tablet.er 08/08/18 [Rx] predniSONE 0 mg PO DIRECTED #30 tab 08/08/18 [Rx] Follow up Appointment(s)/Referral(s): Eris Jc MD [Primary Care Provider] - 1-2 days Erika Paris MD [STAFF PHYSICIAN] - 1 Week Discharge Disposition: HOME SELF-CARE
[2018-08-08 11:35] LABS: Glucose,Whole Blood 263 mg/dL (75-99)
[2018-08-08 15:46] VITALS: BP 146/89; PULSE 103; TEMP 97.7
--- NOTE | 2018-08-12 05:55 | CDI ---
Documentation Clarification Form Date: 08/12/2018 From: Enrique Camarillo Phone: call to [phone] Admit Date: 08/05/2018 11:24:00 PM Patient Name: Memo Noel Visit Number: [id number] Discharge Date: 08/08/2018 3:56:00 PM ATTENTION: The Clinical Documentation Specialists (CDI) and [facility] Coding Staff appreciate your assistance in clarifying documentation. Please respond to the clarification below the line at the bottom and electronically sign. The CDI & [facility] Coding staff will review the response and follow-up if needed. Please note: Queries are made part of the Legal Health Record. If you have any questions, please contact the author of this message via ITS. Dr. Joaquim Quiroga Asthma is documented in the H&P,Progress notes 08/06&08/07 as Asthma exacerbation and in Discharge summary stating COPD exacebation. History/risk factors: smoker,copd Treatment: Duonebs,Steroids In your professional opinion, can you please further specify the following, if known? With Acute Asthma Exacerbation COPD (specify with or without exacerbation) Both(COPD Exacerbation& Asthma Exacebation) Other, please specify ___ Unable to determine Severity for Asthma Mild intermittent Mild persistent Moderate persistent Severe persistent Other, please specify ____ Unable to determine COPD with acute exacerbation MTDD
== END 2018-08-08 15:56 | disposition home or self-care (01) | DRG 193 ==
LOC: EC 20:24 → 4SSUR 23:24
PROVIDERS: ADMIT Family Medicine; ATTEND Family Medicine
DX: J18.9 Pneumonia, unspecified organism (principal); J96.01 Acute respiratory failure with hypoxia; Z68.42 Body mass index [BMI] 45.0-49.9, adult; J44.1 Chronic obstructive pulmonary disease with (acute) exacerbation; E78.5 Hyperlipidemia, unspecified; E11.65 Type 2 diabetes mellitus with hyperglycemia; E83.42 Hypomagnesemia; E66.01 Morbid (severe) obesity due to excess calories; F32.9 Major depressive disorder, single episode, unspecified; I10 Essential (primary) hypertension; F41.9 Anxiety disorder, unspecified; F17.200 Nicotine dependence, unspecified, uncomplicated; I45.10 Unspecified right bundle-branch block; Z79.899 Other long term (current) drug therapy; Z88.2 Allergy status to sulfonamides; Z90.89 Acquired absence of other organs; Z79.84 Long term (current) use of oral hypoglycemic drugs; Z82.49 Family history of ischemic heart disease and other diseases of the circulatory system
CPT/HCPCS: 36415; 71046; 80048; 80053; 81003; 83735; 83880; 84484; 85025; 85027; 85610; 85730; 87040; 93005; 94640; 94644; 94760; 96365; 96368; 96375; 99285

== ENCOUNTER 2018-09-03 18:44 | Observation (INO) | payer OTHER ==
[2018-09-03] MEDS ORDERED: NITROGLYCERIN OINT 1 INCH/GM PACKET TOPICAL STA (20:39)
[2018-09-03] MEDS ORDERED: ASPIRIN 81 MG PO STA (20:39)
--- NOTE | 2018-09-03 20:43 | ED ---
General Adult HPI - General Chief complaint: Shortness of Breath Stated complaint: TERRY Time Seen by Provider: 09/03/18 19:25 Source: patient, RN notes reviewed Mode of arrival: wheelchair Limitations: no limitations - History of Present Illness Initial comments: This is a 48-year-old male who presents emergency Department complaining of a three-day history of shortness of breath and chest heaviness. Patient states the episodes last about an hour at a time and they typically have occurred at least twice a day for the last 3 days. Patient states he also has tingling in both arms when these episodes occur. Patient states she's also very weak on his feet when these are occurring. Patient denies any lightheadedness or dizziness. Patient denies any headache or numbness or weakness. Patient denies any abdominal pain patient denies any vomiting or diarrhea. Patient denies any diaphoretic episodes. - Related Data Home Medications Medication Instructions Recorded Confirmed ALPRAZolam [Xanax] 1 mg PO BID PRN 03/17/15 09/03/18 Cholecalciferol [Vitamin D3 (25 4,000 unit PO QAM 03/17/15 09/03/18 Mcg = 1000 Iu)] Diltiazem HCl [Cardizem] 240 mg PO QAM 03/17/15 09/03/18 Gemfibrozil [Lopid] 600 mg PO BID 03/17/15 09/03/18 Hydrochlorothiazide [Hydrodiuril] 25 mg PO QAM 03/17/15 09/03/18 Omeprazole [PriLOSEC] 40 mg PO AC-BRKFST 03/17/15 09/03/18 Pravastatin Sodium [Pravachol] 20 mg PO HS 03/17/15 09/03/18 glipiZIDE XL [Glucotrol XL] 10 mg PO PC-SUPPER 03/17/15 09/03/18 metFORMIN HCL 1,000 mg PO BID 03/17/15 09/03/18 risperiDONE [risperiDONE ODT] 2 mg PO HS 03/17/15 09/03/18 Cetirizine HCl 10 mg PO DAILY 08/05/18 09/03/18 Fluticasone Nasal [place] [Flonase 1 spray EA NOSTRIL DAILY PRN 08/05/18 09/03/18 Nasal [place]] Ketoconazole 2% Shampoo [Nizoral] 1 applic TOPICAL MOWEFR 08/05/18 09/03/18 Losartan Potassium 50 mg PO DAILY 08/05/18 09/03/18 [place]-3 Fatty Acids/Fish Oil [Fish 1 cap PO DAILY 08/05/18 09/03/18 Oil 1,000 mg Softgel] PARoxetine HCL [Paxil Cr] 37.5 mg PO DAILY 08/05/18 09/03/18 Ranitidine HCl 150 mg PO QAM 08/05/18 09/03/18 Sucralfate [Carafate] 1 gm PO BID PRN 08/05/18 09/03/18 Albuterol Sulfate [Albuterol 1 puff INHALATION RT-Q4H PRN 09/03/18 09/03/18 Sulfate Hfa] Budesonide-Formot 160-4.5 Mcg 2 puff INHALATION RT-BID 09/03/18 09/03/18 [Symbicort 160-4.5 Mcg Inhaler] Previous Rx's Medication Instructions Recorded guaiFENesin [Mucinex] 1,200 mg PO Q12HR #14 tablet.er 08/08/18 Allergies Allergy/AdvReac Type Severity Reaction Status Date / Time Sulfa (Sulfonamide Allergy Rash/Hives Verified 09/03/18 20:49 Antibiotics) Review of Systems ROS Statement: Those systems with pertinent positive or pertinent negative responses have been documented in the HPI. ROS Other: All systems not noted in ROS Statement are negative. Past Medical History Past Medical History: Asthma, Diabetes Mellitus, Hyperlipidemia, Hypertension, Pneumonia, Sleep Apnea/CPAP/BIPAP History of Any Multi-Drug Resistant Organisms: None Reported Past Surgical History: Tonsillectomy Past Anesthesia/Blood Transfusion Reactions: No Reported Reaction Past Psychological History: Anxiety, Depression Smoking Status: Current every day smoker Past Alcohol Use History: None Reported Past Drug Use History: None Reported - Past Family History Mother Family Medical History: Coronary Artery Disease (CAD) Additional Family Medical History / Comment(s): Father Family Medical History: AFIB Additional Family Medical History / Comment(s): Sister(s) Family Medical History: Neurologic Disorder Additional Family Medical History / Comment(s): 1 sister had mental disorder - . 1 sister has osteoporosis Brother(s) Family Medical History: AFIB General Exam - General Exam Comments Initial Comments: GENERAL: Patient is well-developed and well-nourished. Patient is nontoxic and well-hy drated and is in mild distress. ENT: Neck is soft and supple. No significant lymphadenopathy is noted. Oropharynx is clear. Moist mucous membranes. Neck has full range of motion without eliciting any pain. EYES: The sclera were anicteric and conjunctiva were pink and moist. Extraocular movements were intact and pupils were equal round and reactive to light. Eyelids were unremarkable. PULMONARY: Unlabored respirations. Good breath sounds bilaterally. No audible rales rhonchi or wheezing was noted. CARDIOVASCULAR: There is a regular rate and rhythm without any murmurs gallops or rubs. ABDOMEN: Soft and nontender with normal bowel sounds. SKIN: Skin is clear with no lesions or rashes and otherwise unremarkable. NEUROLOGIC: Patient is alert and oriented x3. Cranial nerves II through XII are grossly intact. Motor and sensory are also intact. Normal speech, volume and content. Symmetrical smile. MUSCULOSKELETAL: Normal extremities with adequate strength and full range of motion. LYMPHATICS: No significant lymphadenopathy is noted PSYCHIATRIC: Normal psychiatric evaluation. Limitations: no limitations Course Vital Signs 09/03/18 19:26 Temperature 98.6 F Pulse Rate 76 Respiratory 18 Rate Blood Pressure 127/82 O2 Sat by Pulse 98 Oximetry Medical Decision Making - Medical Decision Making EKG shows normal sinus rhythm at 79 bpm OR interval is on a 62 QRS is under 26 QT interval 396 QTC is 454. Patient's EKG shows no ST segment elevation or depression or T wave abnormalities are noted. cHEST X-RAY SHOWS NO ACUTE ABNORMALITY. i STARTED THE PATIENT ON HEPARIN FOR THE unstable angina picture. I gave the patient aspirin and Nitropaste. I spoke with sounds physician's name agreed to admit the patient I admitted the patient and wrote admitting orders I continued heparin after Nitropaste on the floor. I also consult cardiology. - Lab Data Result diagrams: 09/03/18 20:01 09/03/18 20: Lab Results 09/03/18 09/03/18 09/03/18 Range/Units 20:01 20:01 20: WBC 10.6 (3.8-10.6) k/uL RBC 4.96 (4.30-5.90) m/uL Hgb 15.0 (13.0-17.5) gm/dL Hct 45.8 (39.0-53.0) % MCV 92.3 (80.0-100.0) fL MCH 30.2 (25.0-35.0) pg MCHC 32.7 (31.0-37.0) g/dL RDW 12.7 (11.5-15.5) % Plt Count 258 (150-450) k/uL Neutrophils % 54 % Lymphocytes % 33 % Monocytes % 7 % Eosinophils % 3 % Basophils % 1 % Neutrophils # 5.7 (1.3-7.7) k/uL Lymphocytes # 3.5 (1.0-4.8) k/uL Monocytes # 0.7 (0-1.0) k/uL Eosinophils # 0.4 (0-0.7) k/uL Basophils # 0.1 (0-0.2) k/uL PT (9.0-12.0) sec INR (<1.2) APTT (22.0-30.0) sec Sodium 137 (137-145) mmol/L Potassium 4.4 (3.5-5.1) mmol/L Chloride 103 (98-107) mmol/L Carbon Dioxide 22 (22-30) mmol/L Anion Gap 12 mmol/L BUN 8 L (9-20) mg/dL Creatinine 0.65 L (0.66-1.25) mg/dL Est GFR (CKD-EPI)AfAm >90 (>60 ml/min/1.73 sqM) Est GFR (CKD-EPI)NonAf >90 (>60 ml/min/1.73 sqM) Glucose 107 H (74-99) mg/dL Calcium 9.9 (8.4-10.2) mg/dL Magnesium 1.8 (1.6-2.3) mg/dL Total Bilirubin 0.6 (0.2-1.3) mg/dL AST 35 (17-59) U/L ALT 39 (21-72) U/L Alkaline Phosphatase 56 (38-126) U/L Troponin I (0.000-0.034) ng/mL NT-Pro-B Natriuret Pep 69 pg/mL Total Protein 7.3 (6.3-8.2) g/dL Albumin 4.6 (3.5-5.0) g/dL Serum Alcohol <10 mg/dL 09/03/18 09/03/18 Range/Units 20:01 20:01 WBC (3.8-10.6) k/uL RBC (4.30-5.90) m/uL Hgb (13.0-17.5) gm/dL Hct (39.0-53.0) % MCV (80.0-100.0) fL MCH (25.0-35.0) pg MCHC (31.0-37.0) g/dL RDW (11.5-15.5) % Plt Count (150-450) k/uL Neutrophils % % Lymphocytes % % Monocytes % % Eosinophils % % Basophils % % Neutrophils # (1.3-7.7) k/uL Lymphocytes # (1.0-4.8) k/uL Monocytes # (0-1.0) k/uL Eosinophils # (0-0.7) k/uL Basophils # (0-0.2) k/uL PT 9.8 (9.0-12.0) sec INR 0.9 (<1.2) APTT 23.3 (22.0-30.0) sec Sodium (137-145) mmol/L Potassium (3.5-5.1) mmol/L Chloride (98-107) mmol/L Carbon Dioxide (22-30) mmol/L Anion Gap mmol/L BUN (9-20) mg/dL Creatinine (0.66-1.25) mg/dL Est GFR (CKD-EPI)AfAm (>60 ml/min/1.73 sqM) Est GFR (CKD-EPI)NonAf (>60 ml/min/1.73 sqM) Glucose (74-99) mg/dL Calcium (8.4-10.2) mg/dL Magnesium (1.6-2.3) mg/dL Total Bilirubin (0.2-1.3) mg/dL AST (17-59) U/L ALT (21-72) U/L Alkaline Phosphatase (38-126) U/L Troponin I <0.012 (0.000-0.034) ng/mL NT-Pro-B Natriuret Pep pg/mL Total Protein (6.3-8.2) g/dL Albumin (3.5-5.0) g/dL Serum Alcohol mg/dL Critical Care Time Critical Care Time: Yes Total Critical Care Time: 35 Disposition Clinical Impression: Unstable angina Disposition: ADMITTED IP TO THIS HOSP Referrals: Eris Jc MD [Primary Care Provider] - 1-2 days Time of Disposition: 22:02
[2018-09-03 20:50] LABS: Basophils # (A) 0.1 k/uL (0-0.2); Basophils % (A) 1 %; Eosinophils # (A) 0.4 k/uL (0-0.7); Eosinophils % (A) 3 %; HCT 45.8 % (39.0-53.0); Lymphocytes # (A) 3.5 k/uL (1.0-4.8); Lymphocytes % (A) 33 %; MCH 30.2 pg (25.0-35.0); MCHC 32.7 g/dL (31.0-37.0); MCV 92.3 fL (80.0-100.0); Mean Platelet Volume 6.7; Monocytes # (A) 0.7 k/uL (0-1.0); Monocytes % (A) 7 %; Neutrophils # (A) 5.7 k/uL (1.3-7.7); Neutrophils % (A) 54 %; Platelet Count 258 k/uL (150-450); RBC 4.96 m/uL (4.30-5.90); RDW 12.7 % (11.5-15.5); WBC 10.6 k/uL (3.8-10.6)
[2018-09-03 20:59] LABS: ALT 39 U/L (21-72); AST 35 U/L (17-59); African American GFR (CKD) >90 (>60 ml/min/1.73 sqM); Albumin 4.6 g/dL (3.5-5.0); Alcohol <10 mg/dL; Alkaline Phosphatase 56 U/L (38-126); Anion Gap 12 mmol/L; Blood Urea Nitrogen 8 mg/dL (9-20); Calcium 9.9 mg/dL (8.4-10.2); Carbon Dioxide 22 mmol/L (22-30); Chloride 103 mmol/L (98-107); Glucose 107 mg/dL (74-99); INR 0.9 (<1.2); Magnesium 1.8 mg/dL (1.6-2.3); Partial Thromboplastin Time 23.3 sec (22.0-30.0); Prothrombin Time 9.8 sec (9.0-12.0); Sodium 137 mmol/L (137-145); Total Bilirubin 0.6 mg/dL (0.2-1.3); Total Protein 7.3 g/dL (6.3-8.2)
[2018-09-03 21:13] LABS: Potassium 4.4 mmol/L (3.5-5.1)
--- NOTE | 2018-09-03 21:32 | XR ---
EXAMINATION: XR chest 2V DATE AND TIME: 09/03/2018 8:53 PM CLINICAL INDICATION: PHH; Chest Pain TECHNIQUE: Departmental protocol COMPARISON: 08/05/2018 FINDINGS: The lungs are clear. The pleural spaces are negative. The cardiac silhouette is not enlarged. The remainder of the mediastinal silhouette is unremarkable. The skeletal structures and soft tissues are negative for acute findings. IMPRESSION: NO ACUTE PROCESS.
[2018-09-03] MEDS ORDERED: HEPARIN SODIUM,PORCINE 5,000 UNIT/ML 1 ML VIAL IV ONE (22:02)
[2018-09-03] MEDS ORDERED: NITROGLYCERIN SL TABS 0.4 MG TAB SUBLINGUAL PRN (22:04)
[2018-09-03] MEDS ORDERED: HEPARIN SOD,PORK IN 0.45% NACL 25,000 UNIT in 0.45% NACL 1 250ML.BAG IV SCH (22:15)
--- NOTE | 2018-09-03 23:40 | P.HPIM ---
History of Present Illness H&P Date: 09/03/18 Chief Complaint: dyspnea 48-year-old male with history of diabetes hypertension hyperlipidemia Patient was hospitalized a month ago for pneumonia. Patient presenting with 3 day history of shortness of breath while at rest doing nothing episodes comes in attacks lasting anywhere between 10 minutes to an hour no precipitating factors patient will start calming down and focus on his breathing until the episode resolves denies any coughing fevers or chills he reports associated chest heaviness and tingling in his arms denies any dizziness, sweating, palpitations, or heart racing. But he would feel weak on the legs when these episodes happen. He didn't try anything at home he is not taking any aspirin at home symptoms were getting worse over the past 3 days and decided to come to the hospital today. Patient has history of obstructive sleep apnea and uses CPAP at home. He's not sure of symptoms improved with nitro in the hospital. But during time of interview he was feeling fine. Patient reports that he is cutting back on smoking and he is down to 4 cigarettes a day. Patient reports that he is not active at all, he doesn't climb any stairs he doesn't walk long distances he doesn't walk uphill and he is not sure if he is able to do that with no limitations. Otherwise patient denies any history of heart attacks or heart failure. He denies any GI bleeding. He denies any abdominal pain nausea or vomiting. Initial workup in the ED was unremarkable no leukocytosis, chest x-ray was negative for any acute process, vital signs were stable. EKG showed no acute changes compared to before Review of Systems Pertinent positives as noted in HPI. All other systems were reviewed and are negative Past Medical History Past Medical History: Asthma, Diabetes Mellitus, Hyperlipidemia, Hypertension, Pneumonia, Sleep Apnea/CPAP/BIPAP History of Any Multi-Drug Resistant Organisms: None Reported Past Surgical History: Tonsillectomy Past Anesthesia/Blood Transfusion Reactions: No Reported Reaction Past Psychological History: Anxiety, Depression Smoking Status: Current every day smoker Past Alcohol Use History: None Reported Past Drug Use History: None Reported - Past Family History Mother Family Medical History: Coronary Artery Disease (CAD) Additional Family Medical History / Comment(s): Father Family Medical History: AFIB Additional Family Medical History / Comment(s): Sister(s) Family Medical History: Neurologic Disorder Additional Family Medical History / Comment(s): 1 sister had mental disorder - . 1 sister has osteoporosis Brother(s) Family Medical History: AFIB Medications and Allergies Home Medications Medication Instructions Recorded Confirmed Type ALPRAZolam [Xanax] 1 mg PO BID PRN 03/17/15 09/03/18 History Cholecalciferol [Vitamin D3 (25 4,000 unit PO QAM 03/17/15 09/03/18 History Mcg = 1000 Iu)] Diltiazem HCl [Cardizem] 240 mg PO QAM 03/17/15 09/03/18 History Gemfibrozil [Lopid] 600 mg PO BID 03/17/15 09/03/18 History Hydrochlorothiazide [Hydrodiuril] 25 mg PO QAM 03/17/15 09/03/18 History Omeprazole [PriLOSEC] 40 mg PO AC-BRKFST 03/17/15 09/03/18 History Pravastatin Sodium [Pravachol] 20 mg PO HS 03/17/15 09/03/18 History glipiZIDE XL [Glucotrol XL] 10 mg PO PC-SUPPER 03/17/15 09/03/18 History metFORMIN HCL 1,000 mg PO BID 03/17/15 09/03/18 History risperiDONE [risperiDONE ODT] 2 mg PO HS 03/17/15 09/03/18 History Cetirizine HCl 10 mg PO DAILY 08/05/18 09/03/18 History Fluticasone Nasal [place] [Flonase 1 spray EA NOSTRIL DAILY PRN 08/05/18 09/03/18 History Nasal [place]] Ketoconazole 2% Shampoo [Nizoral] 1 applic TOPICAL MOWEFR 08/05/18 09/03/18 History Losartan Potassium 50 mg PO DAILY 08/05/18 09/03/18 History [place]-3 Fatty Acids/Fish Oil [Fish 1 cap PO DAILY 08/05/18 09/03/18 History Oil 1,000 mg Softgel] PARoxetine HCL [Paxil Cr] 37.5 mg PO DAILY 08/05/18 09/03/18 History Ranitidine HCl 150 mg PO QAM 08/05/18 09/03/18 History Sucralfate [Carafate] 1 gm PO BID PRN 08/05/18 09/03/18 History guaiFENesin [Mucinex] 1,200 mg PO Q12HR #14 tablet.er 08/08/18 09/03/18 Rx Albuterol Sulfate [Albuterol 1 puff INHALATION RT-Q4H PRN 09/03/18 09/03/18 History Sulfate Hfa] Budesonide-Formot 160-4.5 Mcg 2 puff INHALATION RT-BID 09/03/18 09/03/18 History [Symbicort 160-4.5 Mcg Inhaler] Allergies Allergy/AdvReac Type Severity Reaction Status Date / Time Sulfa (Sulfonamide Allergy Rash/Hives Verified 09/03/18 20:49 Antibiotics) Physical Exam Vitals: Vital Signs Temp Pulse Resp BP Pulse Ox 09/03/18 19:26 98.6 F 76 18 127/82 98 Intake and Output 09/03/18 09/03/18 09/04/18 14:59 22:59 06:59 Other: Weight 148.552 kg Constitutional: No acute distress, conversant, pleasant Eyes: Anicteric sclerae, moist conjunctiva, no lid-lag Pupils equal round reactive to light ENMT: NC/AT Oropharynx clear, no erythema, or exudates Neck: Supple, FROM, no masses, or JVD No carotid bruits No thyromegaly Lungs: Clear to auscultation Clear to percussion Normal respiratory effort, no accessory muscle use Cardiovascular: Heart regular in rate and rhythm, No murmurs, gallops, or rubs No peripheral edema Abdominal: Soft Nontender, no guarding, rebound or rigidity Abdomen moving with respiration Normoactive bowel sounds No hepatomegaly, No splenomegaly No palpable mass No abdominal wall hernia noted Skin: Normal temperature, tone, texture, turgor No induration No subcutaneous nodules Patient has rashes on his back, and lower legs he reports that these are chronic due to history of eczema and psoriasis No ulcers Extremities: No digital cyanosis No clubbing Pedal pulses intact and symmetrical Radial pulses intact and symmetrical No calf tenderness Psychiatric: Alert and oriented to person, place and time Appropriate affect fair judgment Neuro Muscles Strength 5/5 in all 4 extremities Sensation to light touch grossly present throughout Cranial nerves II-XII grossly intact No focal sensory deficits Lymphatics: no palpable cervical or supraclavicular , or inguinal lymph nodes Results CBC & Chem 7: 09/03/18 20:01 09/03/18 20:01 Labs: Abnormal Lab Results - Last 24 Hours (Table) 09/03/18 Range/Units 20:01 BUN 8 L (9-20) mg/dL Creatinine 0.65 L (0.66-1.25) mg/dL Glucose 107 H (74-99) mg/dL Assessment and Plan Assessment: 48-year-old male with history of diabetes, hypertension, smoking, COPD. Admitted as an observation with anticipated length of stay less than 48 hours for symptoms suggestive of unstable angina to rule out acute coronary syndrome. Plan: Shortness of breath at rest with atypical chest pain rule out unstable angina an d acute coronary syndrome Patient has multiple risk factors male above 45 positive family history hy pertension, hyperlipidemia, diabetes, active smoking Aspirin, nitro, statin, Heparin drip Morphine when necessary for pain if needed Xanax for anxiety Cardiac consult Cardiac monitoring Trend cardiac enzymes EKG showed no acute changes compared to before Supplemental oxygen as needed Chronic conditions Diabetes mellitus, on oral hypoglycemic agents, will place patient on insulin sliding scale while hospitalized Hypertension continue home meds currently stable Hyperlipidemia continue statin History of psoriasis History of COPD currently compensated DVT to prophylaxis patient on heparin drip per [facility] protocol Preformed a thorough record review from recent hospitalization discharged less than a month ago for pneumonia Surrogate decision-maker: Patient CODE STATUS: Full code Discussed with: Patient, ER Anticipated discharge: Less than 48- hrs Anticipated discharge place: Home A total of 60 minutes was spent on the care of this complex patient more than 50% of the time was spent in counseling and care coordination.
[2018-09-03] MEDS ORDERED: ALPRAZolam 1 MG TAB PO PRN (23:41)
[2018-09-03] MEDS ORDERED: MAG HYDROX/AL HYDROX/SIMETH 30 ML CUP PO PRN (23:53)
[2018-09-04] MEDS: NITROGLYCERIN OINT 1 INCH/GM PACKET TOPICAL SCH ×5 (00:47→23:45)
[2018-09-04] MEDS: risperiDONE ODT 2 MG TAB PO SCH ×2 (02:24→21:33)
[2018-09-04] MEDS: PANTOPRAZOLE 40 MG TABLET PO SCH ×3 (02:38→17:52)
[2018-09-04 04:00] LABS: Cholesterol 184 mg/dL (<200); HDL Cholesterol 51 mg/dL (40-60); LDL Cholesterol,Calculated 98 mg/dL (0-99); Triglycerides 174 mg/dL (<150)
[2018-09-04] MEDS: IPRATROPIUM-ALBUTEROL 3 ML NEB INHALATION PRN ×4 (07:51→20:35)
[2018-09-04] MEDS: SYMBICORT 160-4.5 MCG INHALER INHALATION SCH ×2 (07:51→20:35)
[2018-09-04 08:15] LABS: Glucose,Whole Blood 144 mg/dL (75-99)
[2018-09-04] MEDS: INSULIN ASPART (NovoLOG) 100 UNIT/ML VIAL SQ SCH ×4 (08:42→21:32)
[2018-09-04 11:10] VITALS: BMI 45.6
[2018-09-04] MEDS: LOSARTAN 50 MG TAB PO SCH (12:07)
[2018-09-04] MEDS: ASPIRIN 325 MG TAB PO SCH (12:07)
[2018-09-04] MEDS: LORATADINE 10 MG TAB PO SCH (12:08)
[2018-09-04 12:16] LABS: Glucose,Whole Blood 147 mg/dL (75-99)
[2018-09-04] MEDS: HYDROCHLOROTHIAZIDE 25 MG TAB PO SCH (12:41)
[2018-09-04] MEDS: PARoxetine 10 MG TAB PO SCH (12:41)
[2018-09-04] MEDS: FENOFIBRATE 160 MG TAB PO SCH (12:42)
[2018-09-04] MEDS: DILTIAZEM CD 240 MG CAP.ER.24H PO SCH (12:42)
--- NOTE | 2018-09-04 14:27 | P.CRDCN ---
History of Present Illness History of present illness: This is a pleasant 48-year-old male past medical history significant for hypertension, dyslipidemia, diabetes mellitus, obstructive sleep apnea, gastroesophageal reflux disease, asthma, morbid obesity and chronic nicotine dependence. He sees Dr. Shipman as an outpatient. We have been asked to see him in consultation secondary to chest discomfort. He states over the previous 3 days he has felt intermittent episodes of a tight squeezing sensation in the left precordial region. One of the incidences occurred after he had eaten a large meal. Otherwise there is no specific aggravating or alleviating factor to his episodes. He describes associated radiation and numbness and tingling into his neck and down both of his arms. At times he felt as though he was short of breath and had a hard time taking in a deep breath he also had an episode of nausea. He denies palpitations or dizziness. These episodes last approximately 10-60 minutes when they occur. He was recently admitted to the hospital and discharged on August 08 with pneumonia. He denies any ongoing cough or congestion. He is seen and examined resting comfortably in the emergency department in no acute distress. He denies active chest discomfort at this time. He states since arriving at the hospital he has had no further symptoms of chest discomfort. EKG reveals sinus mechanism with right bundle branch block pattern. Chest x-ray is negative for an acute cardiopulmonary process. Laboratory data reviewed, cardiac enzymes negative, WBC 10.6, hgb 15, plt 258, sodium 137, potassium 4.4, creatinine 0.65, magnesium 1.8, cardiac enzymes negative 3, NT proBNP 69, LDL 98, HDL 51. Current cardiac medications include Cardizem 240 mg daily, Lopid 600 mg twice a day, hydrochlorothiazide 25 mg daily, losartan 50 mg daily and pravastatin 20 mg daily. At the time of my exam: CONSTITUTIONAL: Denies fever. Denies chills. EYES: Denies blurred vision. Denies vision changes. Denies eye pain. EARS, NOSE, MOUTH & THROAT: Denies headache. Denies sore throat. Denies ear pain. CARDIOVASCULAR: Denies chest pain. Denies shortness of breath. Denies orthopnea. Denies PND. Denies palpitations. RESPIRATORY: Denies cough. GASTROINTESTINAL: Denies abdominal pain. Denies diarrhea. Denies constipation. Denies nausea. Denies vomiting. MUSCULOSKELETAL: Denies myalgias. INTEGUMENTARY: Denies pruitis. Denies rash. NEUROLOGIC: Denies numbness. Denies tingling. Denies weakness. PSYCHIATRIC: Denies anxiety. Denies depression. ENDOCRINE: Denies fatigue. Denies weight change. Denies polydipsia. Denies polyurina. GENITOURINARY: Denies burning, hematuria or urgency with micturation. HEMATOLOGIC: Denies history of anemia. Denies bleeding. Blood pressure 129/81 heart rate 81 afebrile maintaining oxygen saturation on n juan cannula GENERAL: This is a 48-year-old male in no apparent distress at the time of my examination. HEENT: Head is atraumatic, normocephalic. Pupils are equal, round. Sclerae anicteric. Conjunctivae are clear. Mucous membranes of the mouth are moist. Neck is supple. There is no jugular venous distention. No carotid bruit is heard. LUNGS: Clear to auscultation no wheezes, rales or rhonchi. No chest wall tenderness is noted on palpation or with deep breathing. HEART: Regular rate and rhythm without murmurs, rubs or gallops. S1 and S2 heard. ABDOMEN: Soft, nontender. Bowel sounds are heard. No organomegaly noted. EXTREMITIES: No evidence of peripheral edema and no calf tenderness noted. VASCULAR: Radial and dorsalis pedis pulses palpated, no evidence of clubbing. NEUROLOGIC: Patient is awake, alert and oriented x3. ASSESSMENT Chest pain, atypical. An acute coronary event has been ruled out. Hypertension Dyslipidemia Obstructive sleep apnea Diabetes mellitus Chronic nicotine dependence COPD PLAN An acute coronary event has been ruled out. No EKG evidence of ischemia and negative cardiac enzymes. 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 Obtain 2D echocardiogram and doppler study to assess cardiac structure and function. Check an ultrasound of the gallbladder. NPO after midnight tonight for possible stress test in the morning. Thank you kindly for this consultation. Nurse Practitioner note has been reviewed, I agree with a documented findings and plan of care. Patient was seen and examined. Past Medical History Past Medical History: Asthma, Diabetes Mellitus, GERD/Reflux, Hyperlipidemia, Hypertension, Pneumonia, Sleep Apnea/CPAP/BIPAP Additional Past Medical History / Comment(s): Pt recently admitted to [facility] on 08/05/18 with hypoxia, respiratory failure 2ndary to COPD and CAP. Other hx: NIDDM type II, KATHARINE with Cpap with oxygen History of Any Multi-Drug Resistant Organisms: None Reported Past Surgical History: Tonsillectomy Past Anesthesia/Blood Transfusion Reactions: No Reported Reaction Additional Past Anesthesia/Blood Transfusion Reaction / Comment(s): Pt has clausterphobia Smoking Status: Current every day smoker - Past Family History Mother Family Medical History: Coronary Artery Disease (CAD) Additional Family Medical History / Comment(s): Father Family Medical History: AFIB Additional Family Medical History / Comment(s): Sister(s) Family Medical History: Neurologic Disorder Additional Family Medical History / Comment(s): 1 sister had mental disorder - . 1 sister has osteoporosis Brother(s) Family Medical History: AFIB Medications and Allergies Home Medications Medication Instructions Recorded Confirmed Type ALPRAZolam [Xanax] 1 mg PO BID PRN 03/17/15 09/03/18 History Cholecalciferol [Vitamin D3 (25 4,000 unit PO QAM 03/17/15 09/03/18 History Mcg = 1000 Iu)] Diltiazem HCl [Cardizem] 240 mg PO QAM 03/17/15 09/03/18 History Gemfibrozil [Lopid] 600 mg PO BID 03/17/15 09/03/18 History Hydrochlorothiazide [Hydrodiuril] 25 mg PO QAM 03/17/15 09/03/18 History Omeprazole [PriLOSEC] 40 mg PO AC-BRKFST 03/17/15 09/03/18 History Pravastatin Sodium [Pravachol] 20 mg PO HS 03/17/15 09/03/18 History glipiZIDE XL [Glucotrol XL] 10 mg PO PC-SUPPER 03/17/15 09/03/18 History metFORMIN HCL 1,000 mg PO BID 03/17/15 09/03/18 History risperiDONE [risperiDONE ODT] 2 mg PO HS 03/17/15 09/03/18 History Cetirizine HCl 10 mg PO DAILY 08/05/18 09/03/18 History Fluticasone Nasal [place] [Flonase 1 spray EA NOSTRIL DAILY PRN 08/05/18 09/03/18 History Nasal [place]] Ketoconazole 2% Shampoo [Nizoral] 1 applic TOPICAL MOWEFR 08/05/18 09/03/18 History Losartan Potassium 50 mg PO DAILY 08/05/18 09/03/18 History [place]-3 Fatty Acids/Fish Oil [Fish 1 cap PO DAILY 08/05/18 09/03/18 History Oil 1,000 mg Softgel] PARoxetine HCL [Paxil Cr] 37.5 mg PO DAILY 08/05/18 09/03/18 History Ranitidine HCl 150 mg PO QAM 08/05/18 09/03/18 History Sucralfate [Carafate] 1 gm PO BID PRN 08/05/18 09/03/18 History guaiFENesin [Mucinex] 1,200 mg PO Q12HR #14 tablet.er 08/08/18 09/03/18 Rx Albuterol Sulfate [Albuterol 1 puff INHALATION RT-Q4H PRN 09/03/18 09/03/18 History Sulfate Hfa] Budesonide-Formot 160-4.5 Mcg 2 puff INHALATION RT-BID 09/03/18 09/03/18 History [Symbicort 160-4.5 Mcg Inhaler] Allergies Allergy/AdvReac Type Severity Reaction Status Date / Time Sulfa (Sulfonamide Allergy Rash/Hives Verified 09/03/18 20:49 Antibiotics) Physical Exam Vitals: Vital Signs Temp Pulse Pulse Resp BP BP Pulse Ox 09/04/18 12:57 92 09/04/18 12:46 82 09/04/18 11:55 97.5 F L 81 20 129/81 95 09/04/18 09:00 97.2 F L 92 20 139/81 93 L 09/04/18 08:36 86 18 134/84 95 09/04/18 08:04 88 09/04/18 07:52 80 09/04/18 05:10 82 23 132/84 92 L 09/04/18 05:00 81 17 132/84 89 L 09/04/18 04:50 77 16 132/84 91 L 09/04/18 04:40 82 20 132/84 90 L 09/04/18 04:30 79 21 132/84 90 L 09/04/18 04:20 87 28 H 132/84 91 L 09/04/18 04:10 90 22 132/84 93 L 09/04/18 04:00 92 14 131/85 91 L 09/04/18 03:50 86 21 131/85 91 L 09/04/18 03:40 86 21 131/85 90 L 09/04/18 03:30 85 20 131/85 91 L 09/04/18 03:20 82 24 131/85 91 L 09/04/18 03:10 76 21 131/85 92 L 09/04/18 03:00 77 26 H 131/85 93 L 09/04/18 02:50 80 21 131/85 93 L 09/04/18 02:40 84 17 131/85 95 09/04/18 02:30 78 10 L 131/85 95 09/04/18 02:20 96 8 L 131/85 09/04/18 02:10 84 22 154/97 92 L 09/04/18 02:00 80 25 H 116/66 91 L 09/04/18 01:50 90 24 116/66 92 L 09/04/18 01:40 84 24 113/67 94 L 09/04/18 01:30 86 23 116/63 92 L 09/04/18 01:20 77 17 116/63 95 09/04/18 01:10 81 23 107/64 93 L 09/04/18 01:00 79 24 124/71 93 L 09/04/18 00:50 73 14 124/71 94 L 09/04/18 00:40 78 14 128/64 94 L 09/04/18 00:30 79 14 131/74 94 L 09/04/18 00:20 77 17 131/74 95 09/04/18 00:10 79 18 117/65 95 09/04/18 00:00 79 17 116/69 94 L 09/03/18 23:50 79 13 116/69 94 L 09/03/18 23:40 79 14 113/72 93 L 09/03/18 23:30 76 16 117/64 94 L 09/03/18 23:20 76 14 117/64 94 L 09/03/18 23:10 80 18 115/70 94 L 09/03/18 23:00 76 14 120/69 96 09/03/18 22:50 90 9 L 120/69 93 L 09/03/18 22:40 76 15 108/68 95 09/03/18 22:30 73 8 L 115/76 91 L 09/03/18 22:20 83 15 115/76 92 L 09/03/18 22:10 82 13 108/72 93 L 09/03/18 22:00 73 18 127/75 93 L 09/03/18 21:50 77 11 L 127/75 94 L 09/03/18 21:40 80 13 123/76 93 L 09/03/18 21:30 81 12 122/77 93 L 09/03/18 21:20 80 10 L 122/77 95 09/03/18 21:10 81 13 125/77 94 L 09/03/18 21:00 84 22 113/67 93 L 09/03/18 20:50 113/67 09/03/18 20:40 80 9 L 114/64 94 L 09/03/18 20:30 80 14 118/66 96 09/03/18 20:20 78 7 L 118/66 93 L 09/03/18 20:10 79 11 L 112/70 94 L 09/03/18 20:00 77 12 127/75 91 L 09/03/18 19:57 80 20 09/03/18 19:26 98.6 F 76 18 127/82 98 Intake and Output 09/03/18 09/04/18 09/04/18 22:59 06:59 14:59 Other: Weight 148.552 kg 146.1 kg Results 09/03/18 20:01 09/03/18 20:01 Cardiac Enzymes 09/03/18 09/03/18 09/04/18 Range/Units 20:01 20:01 02:30 AST 35 (17-59) U/L Troponin I <0.012 <0.012 (0.000-0.034) ng/mL 09/04/18 Range/Units 07:39 AST (17-59) U/L Troponin I <0.012 (0.000-0.034) ng/mL Coagulation 09/03/18 09/04/18 Range/Units 20:01 07:39 PT 9.8 (9.0-12.0) sec APTT 23.3 25.3 (22.0-30.0) sec Lipids 09/04/18 Range/Units 02:30 Triglycerides 174 H (<150) mg/dL Cholesterol 184 (<200) mg/dL HDL Cholesterol 51 (40-60) mg/dL CBC 09/03/18 Range/Units 20:01 WBC 10.6 (3.8-10.6) k/uL RBC 4.96 (4.30-5.90) m/uL Hgb 15.0 (13.0-17.5) gm/dL Hct 45.8 (39.0-53.0) % Plt Count 258 (150-450) k/uL Comprehensive Metabolic Panel 09/03/18 Range/Units 20:01 Sodium 137 (137-145) mmol/L Potassium 4.4 (3.5-5.1) mmol/L Chloride 103 (98-107) mmol/L Carbon Dioxide 22 (22-30) mmol/L BUN 8 L (9-20) mg/dL Creatinine 0.65 L (0.66-1.25) mg/dL Glucose 107 H (74-99) mg/dL Calcium 9.9 (8.4-10.2) mg/dL AST 35 (17-59) U/L ALT 39 (21-72) U/L Alkaline Phosphatase 56 (38-126) U/L Total Protein 7.3 (6.3-8.2) g/dL Albumin 4.6 (3.5-5.0) g/dL Current Medications Generic Name Dose Route Start Last Admin Trade Name Freq PRN Reason Stop Dose Admin Al Hydroxide/Mg Hydroxide 30 ml 09/03/18 23:53 Maalox PO Q4HR PRN GI Upset Albuterol/Ipratropium 3 ml 09/03/18 23:53 09/04/18 12:46 Duoneb 0.5 Mg-3 Mg/3 Ml Soln INHALATION 3 ml RT-QID PRN Administration Shortness Of Breath Or Wheezing Alprazolam 1 mg 09/03/18 23:41 Xanax PO BID PRN Anxiety Aspirin 325 mg 09/04/18 09:00 09/04/18 12:07 Aspirin PO 325 mg DAILY CARMELLA Administration Budesonide/Formoterol Fumarate 2 puff 09/04/18 08:00 09/04/18 07:51 Symbicort 160-4.5 Mcg Inhaler INHALATION 2 puff RT-BID CARMELLA Administration Diltiazem HCl 240 mg 09/04/18 09:00 09/04/18 12:42 Cardizem Cd PO 240 mg QAM CARMELLA Administration Fenofibrate 160 mg 09/04/18 09:00 09/04/18 12:42 Lofibra PO 160 mg DAILY CARMELLA Administration Hydrochlorothiazide 25 mg 09/04/18 09:00 09/04/18 12:41 Hydrodiuril PO 25 mg QAM CARMELLA Administration Heparin Sodium/Sodium Chloride 250 mls @ 10 mls/hr 09/03/18 22:15 09/04/18 02:10 25,000 unit/ Sodium Chloride IV 6.7317 units/kg/hr .Q24H CARMELLA 10 mls/hr Administration Protocol 6.7317 UNITS/KG/HR Insulin Aspart 0 unit 09/04/18 07:30 09/04/18 12:19 Novolog SQ 1 unit ACHS CARMELLA Administration Protocol Loratadine 10 mg 09/04/18 09:00 09/04/18 12:08 Claritin PO 10 mg DAILY CARMELLA Administration Losartan Potassium 50 mg 09/04/18 09:00 09/04/18 12:07 Cozaar PO 50 mg DAILY CARMELLA Administration Nitroglycerin 1 inch 09/04/18 00:00 09/04/18 12:07 Nitro-Bid Oint TOPICAL 1 inch Q6HR CARMELLA Administration Nitroglycerin 0.4 mg 09/03/18 22:04 Nitrostat SUBLINGUAL Q5M PRN Chest Pain Pantoprazole Sodium 40 mg 09/03/18 23:45 09/04/18 12:03 Protonix PO Not Given AC-BID CARMELLA Paroxetine HCl 30 mg 09/04/18 09:00 09/04/18 12:41 Paxil PO 30 mg DAILY CARMELLA Administration Pravastatin Sodium 20 mg 09/04/18 21:00 Pravachol PO HS CARMELLA Risperidone 2 mg 09/03/18 23:45 09/04/18 02:24 Risperdal M-Tab PO Not Given HS CARMELLA Intake and Output 09/03/18 09/04/18 09/04/18 22:59 06:59 14:59 Other: Weight 148.552 kg 146.1 kg Patient Weight 09/05/18 06:59 Weight 146.1 kg 09/03/18 20:01 09/03/18 20:01
[2018-09-04 16:38] LABS: Glucose,Whole Blood 197 mg/dL (75-99)
[2018-09-04 20:42] LABS: Glucose,Whole Blood 154 mg/dL (75-99)
[2018-09-04] MEDS ORDERED: PRAVASTATIN SODIUM 20 MG TAB PO SCH (21:00)
--- NOTE | 2018-09-04 22:56 | PN ---
PROGRESS NOTE DATE OF SERVICE: 09/04/2018 PRESENTING COMPLAINT: Chest pain. INTERVAL HISTORY: The patient presented with chest pain. No further episodes today. He was seen by Cardiology, who ordered a stress test tomorrow. Sitting up. Tolerating diet. REVIEW OF SYSTEMS: Done for constitutional, cardiovascular, GI, pulmonary; relevant findings as above. CURRENT MEDICATIONS: Reviewed. They include aspirin, nitrates, Cardizem. PHYSICAL EXAMINATION: Afebrile. Pulse 74, respiration 19, blood pressure 136/85, pulse ox 93% on 2 L. GENERAL APPEARANCE: Well built; BMI 44.9. Sitting up, comfortable. EYES: Pupils equal. Conjunctivae normal. NECK: JVD not raised. Mass not palpable. RESPIRATORY: Effort normal. LUNGS: Fair air entry. CARDIOVASCULAR: First and second sounds normal. No edema. ABDOMEN: Soft, non-tender. Liver and spleen not palpable. PSYCHIATRY: Alert and oriented x3. Mood and affect normal. INVESTIGATIONS: Troponin x3 negative. LDL 98. ASSESSMENT: 1. Anterior chest wall pain. Cardiac workup in place. 2. Morbid obesity; body mass index 44.9. 3. Diabetes mellitus, type 2, on oral hypoglycemic. 4. Gastroesophageal reflux disease. 5. Hyperlipidemia. 6. Essential hypertension. 7. Obstructive sleep apnea. Uses CPAP. 8. Anxiety and depression not otherwise specified. 9. Chronic nicotine dependence. Patient is a cigarette smoker. PLAN: Continue current medication and treatment plan. Awaiting a stress test. Patient will be given a nicotine patch. MMODL / IJN: [id number] /
[2018-09-04] MEDS: NICOTINE 14MG/24HR PATCH TRANSDERM SCH (23:07)
[2018-09-05] MEDS: NITROGLYCERIN OINT 1 INCH/GM PACKET TOPICAL SCH ×2 (05:41→11:52)
[2018-09-05] MEDS: IPRATROPIUM-ALBUTEROL 3 ML NEB INHALATION PRN (06:55)
[2018-09-05] MEDS: SYMBICORT 160-4.5 MCG INHALER INHALATION SCH (06:55)
[2018-09-05 06:58] LABS: Glucose,Whole Blood 162 mg/dL (75-99)
[2018-09-05] MEDS ORDERED: DIPYRIDAMOLE 70 MG in SODIUM CHLORIDE 0.9% 36 ML IV ONE (07:20)
[2018-09-05] MEDS ORDERED: AMINOPHYLLINE 500 MG/20 ML VIAL IV PRN (07:20)
[2018-09-05] MEDS ORDERED: CAFFEINE CITRATE 60 MG/3 ML VIAL IV PRN (07:20)
--- NOTE | 2018-09-05 07:47 | P.PN ---
Subjective Progress Note Date: 09/05/18 Principal diagnosis: Chest discomfort This is a pleasant 48-year-old gentleman with diabetes, hypertension, dyslipidemia, who was admitted to the hospital with a chest discomfort. On follow-up with the patient today, he is chest pain-free. He was ruled out for acute coronary event. Giving his multiple risk factors, I would recommend proceeding with a stress test and echocardiogram. Objective - Vital Signs Vital signs: Vital Signs Temp 97.6 F 09/05/18 03:35 Pulse 82 09/05/18 07:09 Resp 16 09/05/18 07:09 BP 133/81 09/05/18 03:35 Pulse Ox 97 09/05/18 06:55 Intake & Output 09/04/18 09/05/18 09/05/18 18:59 06:59 18:59 Intake Total 180 Balance 180 Weight 146.1 kg Intake: Oral 180 Other: Voiding Method Toilet Toilet # Voids 1 - Constitutional General appearance: Present: no acute distress - Respiratory Respiratory: bilateral: CTA - Cardiovascular Rhythm: regular Heart sounds: normal: S1, S2 - Labs CBC & Chem 7: 09/03/18 20:01 09/03/18 20:01 Labs: Abnormal Lab Results - Last 24 Hours (Table) 09/04/18 09/04/18 09/04/18 Range/Units 08:12 12:13 16:36 POC Glucose (mg/dL) 144 H 147 H 197 H (75-99) mg/dL 09/04/18 09/05/18 Range/Units 20:09 06:56 POC Glucose (mg/dL) 154 H 162 H (75-99) mg/dL Assessment and Plan Assessment: Assessment #1 atypical chest discomfort #2 multiple risk factors for CAD Plan #1 acute coronary event was ruled out #2 we'll pursue with a stress test.
[2018-09-05] MEDS: INSULIN ASPART (NovoLOG) 100 UNIT/ML VIAL SQ SCH ×2 (08:10→11:52)
[2018-09-05 08:15] VITALS: BP 135/84; RESP 18; TEMP 98.2
--- NOTE | 2018-09-05 08:31 | US ---
EXAMINATION TYPE: US gallbladder DATE OF EXAM: 09/05/2018 COMPARISON: NONE CLINICAL HISTORY: nausea, cp. EXAM MEASUREMENTS: Liver Length: 20.8 cm Gallbladder Wall: 0.3 cm CBD: 0.3 cm Right Kidney: 11.4 x 5.0 x 5.7 cm Patient morbidly obese, study limited. Pancreas: Obscured by bowel gas Liver: Increased attenuation, decreased visualization of vessels, enlarged, somewhat heterogeneous, probable focal fatty sparing adjacent to gallbladder Gallbladder: tiny echogenic foci noted, may be in wall Evidence for sonographic Hill's sign: no CBD: very limited visualization Right Kidney: wnl, as seen somewhat limited view IMPRESSION: 1. Hepatomegaly with underlying hepatic steatosis. 2. Gallbladder mural calcification versus adherent gallstone.
[2018-09-05] MEDS: NICOTINE 14MG/24HR PATCH TRANSDERM SCH (11:32)
[2018-09-05] MEDS: LORATADINE 10 MG TAB PO SCH (11:32)
[2018-09-05] MEDS: ASPIRIN 325 MG TAB PO SCH (11:32)
[2018-09-05] MEDS: DILTIAZEM CD 240 MG CAP.ER.24H PO SCH (11:32)
[2018-09-05] MEDS: LOSARTAN 50 MG TAB PO SCH (11:32)
[2018-09-05] MEDS: PANTOPRAZOLE 40 MG TABLET PO SCH (11:32)
[2018-09-05] MEDS: FENOFIBRATE 160 MG TAB PO SCH (11:32)
[2018-09-05] MEDS: PARoxetine 10 MG TAB PO SCH (11:33)
--- NOTE | 2018-09-05 11:33 | NM ---
EXAMINATION TYPE: NM stress persantine cardiolit DATE OF EXAM: 09/05/2018 COMPARISON: NONE HISTORY: History of hypertension, hypercholesterolemia, tobacco use, COPD with inhaler, family histor y of heart disease, diabetes, and prior stroke presents with chest pain and difficulty breathing. TECHNIQUE: After the intravenous administration of 10.2 mCi Tc 99m Sestamibi - Cardiolite resting SP ECT images acquired 60 minutes post injection. The patient received 70 mg Persantine, 26 mCi Tc 99m Sestamibi - Stress images obtained [address] injection FINDINGS: Review of stress and rest SPECT images demonstrates significant artifact on the rest images with bett er radiotracer uptake on the stress images. There is no convincing scintigraphic evidence for reversi ble ischemia. Gated analysis shows normal wall motion with an estimated left ventricular ejection fr action of 60 %. IMPRESSION: No scintigraphic evidence for reversible ischemia.
[2018-09-05] MEDS: HYDROCHLOROTHIAZIDE 25 MG TAB PO SCH (11:52)
[2018-09-05 12:03] LABS: Glucose,Whole Blood 177 mg/dL (75-99)
--- NOTE | 2018-09-05 13:33 | ECHOF ---
Referral Reason:cp MEASUREMENTS -------- HEIGHT: 180.3 cm WEIGHT: 146.1 kg BP: 129/81 RVIDd: 3.5 cm (< 3.3) IVSd: 1.6 cm (0.6 - 1.1) LVIDd: 5.0 cm (3.9 - 5.3) LVPWd: 1.5 cm (0.6 - 1.1) IVSs: 2.0 cm LVIDs: 3.1 cm LVPWs: 1.7 cm LA Diam: 3.8 cm (2.7 - 3.8) LAESV Index (A-L): 14.43 ml/m Ao Diam: 3.1 cm (2.0 - 3.7) AV Cusp: 1.9 cm (1.5 - 2.6) MV EXCURSION: 18.807 mm (> 18.000) MV EF SLOPE: 85 mm/s (70 - 150) EPSS: 0.8 cm MV E Toan: 0.97 m/s MV DecT: 212 ms MV A Toan: 0.69 m/s MV E/A Ratio: 1.40 AV maxP.69 mmHg AV meanP.64 mmHg AR PHT: 426 ms FINDINGS -------- Sinus rhythm. This was a technically difficult study with suboptimal apical views. The left ventricular size is normal. There is moderate concentric left ventricular hypertrophy. O verall left ventricular systolic function is normal with, an EF between 60 - 65 %. The right ventricle is mildly enlarged. Normal LA size by volume 22+/-6 ml/m2. The right atrium is normal in size. 5 ml of Lumason was utilized for enhancement of images. There is mild aortic valve sclerosis. Trace to mild aortic regurgitation. There is mild aortic st enosis present. Peak/mean gradient across the Aortic Valve is 20.69mmHg / 10.64mmHg. Mild mitral annular calcification present. The tricuspid valve appears structurally normal. The pulmonic valve was not well visualized. The aortic root size is normal. IVC Not well visulized. There is no pericardial effusion. CONCLUSIONS -------- 1. Sinus rhythm. 2. This was a technically difficult study with suboptimal apical views. 3. The left ventricular size is normal. 4. There is moderate concentric left ventricular hypertrophy. 5. Overall left ventricular systolic function is normal with, an EF between 60 - 65 %. 6. The right ventricle is mildly enlarged. 7. Normal LA size by volume 22+/-6 ml/m2. 8. The right atrium is normal in size. 9. 5 ml of Lumason was utilized for enhancement of images. 10. There is mild aortic valve sclerosis. 11. Trace to mild aortic regurgitation. 12. There is mild aortic stenosis present. 13. Peak/mean gradient across the Aortic Valve is 20.69mmHg / 10.64mmHg. 14. Mild mitral annular calcification present. 15. The tricuspid valve appears structurally normal. 16. The pulmonic valve was not well visualized. 17. The aortic root size is normal. 18. IVC Not well visulized. 19. There is no pericardial effusion. ORE SAMPLER: Nuria Cordova RDCS
--- NOTE | 2018-09-05 13:49 | P.GSCN ---
History of Present Illness Consult date: 09/05/18 History of present illness: 48-year-old male presented to the emergency department with complaints of left- sided chest pain. He states that his pain seems to be brought upon with smoking cigarettes in with some foods. He states that this had been going on for approximately 3 days prior to his arrival in the emergency department. He denied any nausea vomiting. He denies any abdominal pain. He denies any back pain. He admits to not living a healthy lifestyle with cigarette smoking and an unhealthy diet. He also complained of some shortness of breath. Currently, he states that his pain has resolved. He denies any current shortness of breath. He denies any current abdominal pain. He has been on a heart healthy diet and has been tolerating that. He denies ever having any abdominal surgery previously. He states he does take omeprazole and ranitidine for heartburn. Review of Systems All systems: negative Past Medical History Past Medical History: Asthma, Diabetes Mellitus, GERD/Reflux, Hyperlipidemia, Hypertension, Pneumonia, Sleep Apnea/CPAP/BIPAP Additional Past Medical History / Comment(s): Pt recently admitted to [facility] on 08/05/18 with hypoxia, respiratory failure 2ndary to COPD and CAP. Other hx: NIDDM type II, KATHARINE with Cpap with oxygen History of Any Multi-Drug Resistant Organisms: None Reported Past Surgical History: Tonsillectomy Past Anesthesia/Blood Transfusion Reactions: No Reported Reaction Additional Past Anesthesia/Blood Transfusion Reaction / Comm: Pt has clausterphobia Smoking Status: Current every day smoker - Past Family History Mother Family Medical History: Coronary Artery Disease (CAD) Additional Family Medical History / Comment(s): Father Family Medical History: AFIB Additional Family Medical History / Comment(s): Sister(s) Family Medical History: Neurologic Disorder Additional Family Medical History / Comment(s): 1 sister had mental disorder - . 1 sister has osteoporosis Brother(s) Family Medical History: AFIB Medications and Allergies Home Medications Medication Instructions Recorded Confirmed Type ALPRAZolam [Xanax] 1 mg PO BID PRN 03/17/15 09/03/18 History Cholecalciferol [Vitamin D3 (25 4,000 unit PO QAM 03/17/15 09/03/18 History Mcg = 1000 Iu)] Diltiazem HCl [Cardizem] 240 mg PO QAM 03/17/15 09/03/18 History Gemfibrozil [Lopid] 600 mg PO BID 03/17/15 09/03/18 History Hydrochlorothiazide [Hydrodiuril] 25 mg PO QAM 03/17/15 09/03/18 History Omeprazole [PriLOSEC] 40 mg PO AC-BRKFST 03/17/15 09/03/18 History Pravastatin Sodium [Pravachol] 20 mg PO HS 03/17/15 09/03/18 History metFORMIN HCL 1,000 mg PO BID 03/17/15 09/03/18 History risperiDONE [risperiDONE ODT] 2 mg PO HS 03/17/15 09/03/18 History Cetirizine HCl 10 mg PO DAILY 08/05/18 09/03/18 History Ketoconazole 2% Shampoo [Nizoral] 1 applic TOPICAL MOWEFR 08/05/18 09/03/18 History Losartan Potassium 50 mg PO DAILY 08/05/18 09/03/18 History [place]-3 Fatty Acids/Fish Oil [Fish 1 cap PO DAILY 08/05/18 09/03/18 History Oil 1,000 mg Softgel] PARoxetine HCL [Paxil Cr] 37.5 mg PO DAILY 08/05/18 09/03/18 History Ranitidine HCl 150 mg PO QAM 08/05/18 09/03/18 History guaiFENesin [Mucinex] 1,200 mg PO Q12HR #14 tablet.er 08/08/18 09/03/18 Rx Albuterol Sulfate [Albuterol 1 puff INHALATION RT-Q4H PRN 09/03/18 09/03/18 History Sulfate Hfa] Budesonide-Formot 160-4.5 Mcg 2 puff INHALATION RT-BID 09/03/18 09/03/18 History [Symbicort 160-4.5 Mcg Inhaler] Aspirin 81 mg PO DAILY #1 chewable 09/05/18 Rx Nicotine 14Mg/24Hr Patch [Habitrol] 1 patch TRANSDERM DAILY #14 patch 09/05/18 Rx Allergies Allergy/AdvReac Type Severity Reaction Status Date / Time Sulfa (Sulfonamide Allergy Rash/Hives Verified 09/03/18 20:49 Antibiotics) Surgical - Exam Osteopathic Statement: *. No significant issues noted on an osteopathic structural exam other than those noted in the History and Physical/Consult. Vital Signs Temp Pulse Resp BP Pulse Ox 98.6 F 76 18 127/82 98 09/03/18 19:26 09/03/18 19:26 09/03/18 19:26 09/03/18 19:26 09/03/18 19:26 - General well nourished, no distress - Eyes PERRL - ENT normal mucosa, no hearing loss - Neck no masses, no bruits, trachea midline - Respiratory normal respiratory effort - Abdomen Soft, nontender, nondistended, no rebound, no guarding - Neurologic normal coordination, normal sensation - Psychiatric oriented to time, oriented to person, oriented to place Results - Labs 09/03/18 20:01 09/03/18 20:01 Abnormal Lab Results - Last 24 Hours (Table) 09/04/18 09/04/18 09/05/18 Range/Units 16:36 20:09 06:56 POC Glucose (mg/dL) 197 H 154 H 162 H (75-99) mg/dL 09/05/18 Range/Units 12:00 POC Glucose (mg/dL) 177 H (75-99) mg/dL - Imaging US - abdomen: report reviewed (Possible small gallstone) Assessment and Plan Plan: 48-year-old male with a possibility of a small gallstone per gallbladder ultrasound - Currently, the patient's symptoms do not reflect any cholecystitis. His liver enzymes are normal along with his bilirubin. He denies any abdominal pain. He is tolerating a diet without having any complaints of pain. At this point, does not appear that the gallstone that was found on imaging is a cause of cholecystitis. He is stable from a surgical standpoint for discharge. I did provide the patient with follow-up information if he does begin to have any signs and symptoms of biliary colic. I did discuss the symptoms with the patient.
[2018-09-05 15:01] VITALS: PULSE 66
--- NOTE | 2018-09-05 15:18 | EST ---
EXERCISE STRESS AGE: 48 SEX: M HT: 71" WT: 322 PROTOCOL: Persantine Cardiolite Study HEART RATE REST: 92 BLOOD PRESSURE REST: 163/84 MAXIMUM HEART RATE ACHIEVED: 117 MAXIMUM BLOOD PRESSURE: 161/67 85% MPHR: 145 100% MPHR: 171 INDICATIONS: Chest pain. CLINICAL INFORMATION: STRESS DATA: Heart rate 92, pressure is 163/84 mmHg. Baseline EKG showed sinus mechanism. He was given 70 mg of Persantine per protocol. Max heart rate was 117 beats per minute. maximum pressure was 161/67 mmHg. Clinically, the patient did not have any symptoms and the EKG did not show any significant ST or T-wave abnormalities concerning for ischemia. CONCLUSION: 1. Nondiagnostic electrocardiogram stress testing in response to Persantine. 2. Please follow up on the Cardiolite portion on a separate report from the Radiology Department. MMODL / IJN: [id number] /
--- NOTE | 2018-09-05 22:54 | DS ---
DISCHARGE SUMMARY DATE OF ADMISSION: 09/03/2018 DATE OF DISCHARGE: 09/05/2018 FINAL DIAGNOSES: 1. Anterior chest wall pain. Could be musculoskeletal. 2. Morbid obesity; body mass index of 44.9. 3. Diabetes mellitus, type 2, on oral hypoglycemic. 4. Gastroesophageal reflux disease. 5. Hyperlipidemia. 6. Essential hypertension. 7. Obstructive sleep apnea. Uses CPAP. 8. Anxiety, depression not otherwise specified. 9. Chronic nicotine dependence. Patient is a cigarette smoker. 10.Gallstones, asymptomatic. HOSPITAL COURSE: This patient presented with chest pain. Troponins were negative. Two-D echo showed preserved LV function. Nuclear stress test was negative. Okayed by Cardiology to be discharged. Patient also has asymptomatic gallstones. CONSULTATIONS: 1. Dr. Santo from Cardiology. 2. Dr. Muniz from General Surgery. PHYSICAL EXAMINATION: Temperature 98.2, pulse 80, respiration 18, blood pressure 135/84. LUNGS: Distant breath sounds. CARDIOVASCULAR: First and second sounds normal. DISCHARGE MEDICATIONS: 1. Xanax 1 mg p.o. b.i.d. p.r.n. 2. Vitamin D3 4000 units p.o. daily. 3. Cardizem 240 mg p.o. daily. 4. Lopid 600 mg p.o. b.i.d. 5. Hydrochlorothiazide 25 mg p.o. daily. 6. Prilosec 40 mg before breakfast. 7. Pravachol 20 mg at bedtime. 8. Metformin 1000 mg b.i.d. 9. Risperidone 2 mg p.o. at bedtime. 10.Cetirizine 10 mg p.o. daily. 11.Nizoral topical Saturday, Saturday and Saturday. 12.Losartan 50 mg p.o. daily. 13.Fish oil 1000 mcg 1 capsule p.o. daily. 14.Paxil CR 37.5 p.o. daily. 15.Zantac 150 mg p.o. daily. 16.Mucinex 1200 mg p.o. q.12. 17.Albuterol 1 puff q.4 p.r.n. 18.Symbicort 160/4.5 two puffs b.i.d. 19.Aspirin 81 mg a day. 20.Nicotine 14 patch. Follow up with Dr. Darnell Jc in 3 days. Follow up with Dr. Juanpablo Muniz p.r.n. Follow up with Cardiology p.r.n. MMRACHELL / HIRENN: [id number] /
== END 2018-09-05 15:44 | disposition home or self-care (01) ==
LOC: EC 18:44 → 3SCARD 22:04 → OBSVTOIN 22:04 → INTOOBSV 22:04 → 3SCARD 22:38 → 1SOBS 09-04 08:04 → UNDODISIN 09-05 15:44
PROVIDERS: ADMIT Hospitalist; ATTEND Hospitalist
DX: R07.89 Other chest pain (principal); I10 Essential (primary) hypertension; E11.9 Type 2 diabetes mellitus without complications; K21.9 Gastro-esophageal reflux disease without esophagitis; E66.01 Morbid (severe) obesity due to excess calories; Z68.41 Body mass index [BMI] 40.0-44.9, adult; E78.5 Hyperlipidemia, unspecified; G47.33 Obstructive sleep apnea (adult) (pediatric); K80.80 Other cholelithiasis without obstruction; F17.210 Nicotine dependence, cigarettes, uncomplicated; F32.9 Major depressive disorder, single episode, unspecified; F41.9 Anxiety disorder, unspecified; R20.2 Paresthesia of skin; R20.0 Anesthesia of skin; F40.240 Claustrophobia; J44.9 Chronic obstructive pulmonary disease, unspecified; L40.9 Psoriasis, unspecified; I45.10 Unspecified right bundle-branch block; Z99.89 Dependence on other enabling machines and devices; Z79.84 Long term (current) use of oral hypoglycemic drugs; Z79.51 Long term (current) use of inhaled steroids; Z79.899 Other long term (current) drug therapy; Z88.2 Allergy status to sulfonamides; Z87.01 Personal history of pneumonia (recurrent); Z82.49 Family history of ischemic heart disease and other diseases of the circulatory system; Z82.62 Family history of osteoporosis; Z81.8 Family history of other mental and behavioral disorders; Z82.0 Family history of epilepsy and other diseases of the nervous system
CPT/HCPCS: 96374; 99291; 36415; 94640 ×3; 94760; 93005; 93017; 93306; 83880; 80061; 80053; 83735; 84484 ×2; 85025; 85610; 85730 ×2; 71046; 76705; 78452; G0378 ×3; G0480; A9500; J1644 ×2; 80320; 96365; 96366; 96376

== ENCOUNTER 2018-12-30 14:31 | Observation (INO) | payer OTHER ==
[2018-12-30] MEDS ORDERED: IPRATROPIUM-ALBUTEROL 3 ML NEB INHALATION STA (14:44)
[2018-12-30] MEDS ORDERED: MAGNESIUM SULFATE-D5W PMX 1 GM in DEXTROSE/WATER 1 100ML.BAG IVPB STA (14:44)
--- NOTE | 2018-12-30 14:54 | ED ---
SOB HPI - General Stated Complaint: SOB Time Seen by Provider: 12/30/18 14:31 Source: patient, EMS, RN notes reviewed Mode of arrival: EMS - History of Present Illness Initial Comments: This is a 48-year-old male with a history of suspected COPD who is brought in by EMS from his doctor's office with complaints of shortness of breath. He had 2 or 3 days of on-and-off shortness of breath which got much worse today he was given a breathing treatment in the office he was also brought in by EMS and given an additional nebulizer treatment as well as steroids. He does feel much improved he still wheezes he has 90% pulse ox on 4 L of oxygen at this time he does state he uses oxygen with his CPAP at night but not during the day. He currently is a smoker. He denies any overt chest pain no fevers chills nausea vomiting sweats cough or phlegm production he does demonstrate a cough at this time. MD Complaint: shortness of breath - Related Data Home Medications Medication Instructions Recorded Confirmed ALPRAZolam [Xanax] 1 mg PO BID PRN 03/17/15 12/30/18 Cholecalciferol [Vitamin D3 (25 4,000 unit PO QAM 03/17/15 12/30/18 Mcg = 1000 Iu)] Diltiazem HCl [Cardizem] 240 mg PO QAM 03/17/15 12/30/18 Gemfibrozil [Lopid] 600 mg PO BID 03/17/15 12/30/18 Hydrochlorothiazide [Hydrodiuril] 25 mg PO QAM 03/17/15 12/30/18 Omeprazole [PriLOSEC] 40 mg PO AC-BRKFST 03/17/15 12/30/18 Pravastatin Sodium [Pravachol] 20 mg PO HS 03/17/15 12/30/18 metFORMIN HCL 1,000 mg PO BID 03/17/15 12/30/18 risperiDONE [risperiDONE ODT] 2 mg PO HS 03/17/15 12/30/18 Cetirizine HCl 10 mg PO DAILY 08/05/18 12/30/18 Ketoconazole 2% Shampoo [Nizoral] 1 applic TOPICAL MOWEFR 08/05/18 12/30/18 [place]-3 Fatty Acids/Fish Oil [Fish 1 cap PO DAILY 08/05/18 12/30/18 Oil 1,000 mg Softgel] PARoxetine HCL [Paxil Cr] 37.5 mg PO HS 08/05/18 12/30/18 Ranitidine HCl 150 mg PO QAM 08/05/18 12/30/18 Albuterol Sulfate [Albuterol 1 puff INHALATION RT-Q4H PRN 09/03/18 12/30/18 Sulfate Hfa] Alogliptin Benzoate [Alogliptin] 25 mg PO DAILY 12/30/18 12/30/18 Clobetasol Propionate [Clobex .05% 1 applic TOPICAL DAILY 12/30/18 12/30/18 Shampoo] Clobetasol Propionate [Temovate 1 applic TOPICAL DAILY 12/30/18 12/30/18 0.05% Cream] Losartan Potassium 100 mg PO DAILY 12/30/18 12/30/18 PARoxetine HCL [Paxil Cr] 25 mg PO HS 12/30/18 12/30/18 Pantoprazole [Protonix] 40 mg PO BID 12/30/18 12/30/18 glipiZIDE [Glucotrol XL] 20 mg PO HS 12/30/18 12/30/18 Allergies Allergy/AdvReac Type Severity Reaction Status Date / Time Sulfa (Sulfonamide Allergy Rash/Hives Verified 12/30/18 15:03 Antibiotics) tamsulosin [From Flomax] AdvReac LETHARGIC Verified 12/30/18 15:10 Review of Systems ROS Statement: Those systems with pertinent positive or pertinent negative responses have been documented in the HPI. ROS Other: All systems not noted in ROS Statement are negative. Past Medical History Past Medical History: Asthma, Diabetes Mellitus, GERD/Reflux, Hyperlipidemia, Hypertension, Pneumonia, Sleep Apnea/CPAP/BIPAP Additional Past Medical History / Comment(s): Pt recently admitted to [facility] on 08/05/18 with hypoxia, respiratory failure 2ndary to COPD and CAP. Other hx: NIDDM type II, KATHARINE with Cpap with oxygen History of Any Multi-Drug Resistant Organisms: None Reported Past Surgical History: Tonsillectomy Past Anesthesia/Blood Transfusion Reactions: No Reported Reaction Additional Past Anesthesia/Blood Transfusion Reaction / Comment(s): Pt has clausterphobia Smoking Status: Current every day smoker - Past Family History Mother Family Medical History: Coronary Artery Disease (CAD) Additional Family Medical History / Comment(s): Father Family Medical History: AFIB Additional Family Medical History / Comment(s): Sister(s) Family Medical History: Neurologic Disorder Additional Family Medical History / Comment(s): 1 sister had mental disorder - . 1 sister has osteoporosis Brother(s) Family Medical History: AFIB General Exam - General Exam Comments Initial Comments: This is a well-developed well-nourished awake alert oriented times female he does demonstrate some audible wheezes Course Vital Signs 12/30/18 12/30/18 12/30/18 14:55 15:29 15:36 Temperature 98.5 F Pulse Rate 99 101 H 97 Respiratory 20 Rate Blood Pressure 145/85 O2 Sat by Pulse 86 L Oximetry Medical Decision Making - Medical Decision Making Patient is improved though he does persistently having dyspnea and desaturation his d-dimer is negative however after discussion with Dr. Carvajal the patient will get a CT of the chest rule out PE - Lab Data Result diagrams: 12/30/18 14:45 12/30/18 14:45 Lab Results 12/30/18 12/30/18 12/30/18 Range/Units 14:45 14:45 14:45 WBC 9.2 (3.8-10.6) k/uL RBC 5.12 (4.30-5.90) m/uL Hgb 16.1 (13.0-17.5) gm/dL Hct 48.2 (39.0-53.0) % MCV 94.1 (80.0-100.0) fL MCH 31.3 (25.0-35.0) pg MCHC 33.3 (31.0-37.0) g/dL RDW 12.8 (11.5-15.5) % Plt Count 241 (150-450) k/uL Neutrophils % 56 % Lymphocytes % 28 % Monocytes % 9 % Eosinophils % 2 % Basophils % 2 % Neutrophils # 5.1 (1.3-7.7) k/uL Lymphocytes # 2.6 (1.0-4.8) k/uL Monocytes # 0.9 (0-1.0) k/uL Eosinophils # 0.2 (0-0.7) k/uL Basophils # 0.2 (0-0.2) k/uL PT 10.0 (9.0-12.0) sec INR 0.9 (<1.2) APTT 23.5 (22.0-30.0) sec D-Dimer 0.35 (<0.60) mg/L FEU Sodium 137 (137-145) mmol/L Potassium 4.5 (3.5-5.1) mmol/L Chloride 100 (98-107) mmol/L Carbon Dioxide 23 (22-30) mmol/L Anion Gap 14 mmol/L BUN 12 (9-20) mg/dL Creatinine 0.63 L (0.66-1.25) mg/dL Est GFR (CKD-EPI)AfAm >90 (>60 ml/min/1.73 sqM) Est GFR (CKD-EPI)NonAf >90 (>60 ml/min/1.73 sqM) Glucose 168 H (74-99) mg/dL Calcium 9.8 (8.4-10.2) mg/dL Magnesium 1.9 (1.6-2.3) mg/dL Total Bilirubin 0.3 (0.2-1.3) mg/dL AST 33 (17-59) U/L ALT 42 (21-72) U/L Alkaline Phosphatase 79 (38-126) U/L Creatine Kinase 164 (55-170) U/L Troponin I (0.000-0.034) ng/mL NT-Pro-B Natriuret Pep pg/mL Total Protein 7.1 (6.3-8.2) g/dL Albumin 4.3 (3.5-5.0) g/dL 12/30/18 12/30/18 Range/Units 14:45 14:45 WBC (3.8-10.6) k/uL RBC (4.30-5.90) m/uL Hgb (13.0-17.5) gm/dL Hct (39.0-53.0) % MCV (80.0-100.0) fL MCH (25.0-35.0) pg MCHC (31.0-37.0) g/dL RDW (11.5-15.5) % Plt Count (150-450) k/uL Neutrophils % % Lymphocytes % % Monocytes % % Eosinophils % % Basophils % % Neutrophils # (1.3-7.7) k/uL Lymphocytes # (1.0-4.8) k/uL Monocytes # (0-1.0) k/uL Eosinophils # (0-0.7) k/uL Basophils # (0-0.2) k/uL PT (9.0-12.0) sec INR (<1.2) APTT (22.0-30.0) sec D-Dimer (<0.60) mg/L FEU Sodium (137-145) mmol/L Potassium (3.5-5.1) mmol/L Chloride (98-107) mmol/L Carbon Dioxide (22-30) mmol/L Anion Gap mmol/L BUN (9-20) mg/dL Creatinine (0.66-1.25) mg/dL Est GFR (CKD-EPI)AfAm (>60 ml/min/1.73 sqM) Est GFR (CKD-EPI)NonAf (>60 ml/min/1.73 sqM) Glucose (74-99) mg/dL Calcium (8.4-10.2) mg/dL Magnesium (1.6-2.3) mg/dL Total Bilirubin (0.2-1.3) mg/dL AST (17-59) U/L ALT (21-72) U/L Alkaline Phosphatase (38-126) U/L Creatine Kinase (55-170) U/L Troponin I <0.012 (0.000-0.034) ng/mL NT-Pro-B Natriuret Pep 12 pg/mL Total Protein (6.3-8.2) g/dL Albumin (3.5-5.0) g/dL - EKG Data -: EKG Interpreted by Me EKG shows normal: sinus rhythm (Sinus tachycardia 101 WA interval 148 QRS duration 128 QT/QTC 366/474 left exodeviation nonspecific interventricular block) - Radiology Data Radiology results: report reviewed (I did review the imaging and report no acute findings there is evidence of COPD), image reviewed Critical Care Time Critical Care Time: Yes Critical Care Time: 39 minutes of critical care time which includes initial presentation with history physical labs x-rays discussed with paramedics brought the patient for reevaluation of the patient to responsive therapy discuss with the patient's regarding findings discussion with the admitting physician admission orders and documentation of the above Disposition Clinical Impression: Acute respiratory distress syndrome in adult, Acute exacerbation of chronic obs tructive pulmonary disease (COPD), Hypoxemia Disposition: ADMITTED IP TO THIS HOSP Condition: Fair Referrals: Eris Jc MD [Primary Care Provider] - 1-2 days
[2018-12-30 15:15] LABS: Basophils # (A) 0.2 k/uL (0-0.2); Basophils % (A) 2 %; Eosinophils # (A) 0.2 k/uL (0-0.7); Eosinophils % (A) 2 %; HCT 48.2 % (39.0-53.0); HGB 16.1 gm/dL (13.0-17.5); Lymphocytes # (A) 2.6 k/uL (1.0-4.8); Lymphocytes % (A) 28 %; MCH 31.3 pg (25.0-35.0); MCHC 33.3 g/dL (31.0-37.0); MCV 94.1 fL (80.0-100.0); Mean Platelet Volume 6.7; Monocytes # (A) 0.9 k/uL (0-1.0); Monocytes % (A) 9 %; Neutrophils # (A) 5.1 k/uL (1.3-7.7); Neutrophils % (A) 56 %; Platelet Count 241 k/uL (150-450); RBC 5.12 m/uL (4.30-5.90); RDW 12.8 % (11.5-15.5); WBC 9.2 k/uL (3.8-10.6)
[2018-12-30 15:23] LABS: ALT 42 U/L (21-72); AST 33 U/L (17-59); African American GFR (CKD) >90 (>60 ml/min/1.73 sqM); Albumin 4.3 g/dL (3.5-5.0); Alkaline Phosphatase 79 U/L (38-126); Anion Gap 14 mmol/L; Blood Urea Nitrogen 12 mg/dL (9-20); Calcium 9.8 mg/dL (8.4-10.2); Carbon Dioxide 23 mmol/L (22-30); Chloride 100 mmol/L (98-107); Creatine Kinase 164 U/L (55-170); Glucose 168 mg/dL (74-99); Magnesium 1.9 mg/dL (1.6-2.3); Potassium 4.5 mmol/L (3.5-5.1); Sodium 137 mmol/L (137-145); Total Bilirubin 0.3 mg/dL (0.2-1.3); Total Protein 7.1 g/dL (6.3-8.2)
[2018-12-30 15:27] LABS: D-Dimer 0.35 mg/L FEU (<0.60); INR 0.9 (<1.2); Partial Thromboplastin Time 23.5 sec (22.0-30.0)
--- NOTE | 2018-12-30 16:02 | XR ---
EXAMINATION TYPE: XR chest 2V DATE OF EXAM: 12/30/2018 COMPARISON: 09/03/2018 HISTORY: Shortness of breath TECHNIQUE: Frontal and lateral views of the chest are obtained. FINDINGS: There is no focal air space opacity, pleural effusion, or pneumothorax seen. Pulmonary hy perinflation and flattening the diaphragms are seen representing underlying COPD. Peribronchial cuffi ng at the lung bases. The cardiac silhouette size is within normal limits. The osseous structures a re intact. Mild multilevel degenerative changes of the spine. IMPRESSION: Peribronchial cuffing in the lung bases can be seen in reactive or infectious airway dis ease in this patient with underlying COPD.
[2018-12-30] MEDS ORDERED: ALPRAZolam 1 MG TAB PO PRN (16:41)
--- NOTE | 2018-12-30 18:41 | CT ---
EXAMINATION TYPE: CT angio chest with contrast and with 3-D reconstruction renderings. DATE OF EXAM: 12/30/2018 5:45 PM COMPARISON: None HISTORY: exertional dyspnea CT DLP: 1101.4 mGycm Automated exposure control for dose reduction was used. CONTRAST: CTA scan of the thorax is performed with IV Contrast, patient injected with 100 mL of Isovu e 370, pulmonary embolism protocol. Three-D reconstruction renderings. FINDINGS: LUNGS AND PLEURAL SPACES: The lungs are grossly clear, there is no concerning parenchymal mass or nod ule identified. There is no pleural effusion or pneumothorax seen. The tracheobronchial tree is edwards nt. MEDIASTINUM: There is satisfactory enhancement of the pulmonary artery and its branches, there is no CT evidence for pulmonary embolism. No acute aortic process. There are no greater than 1 cm hilar or mediastinal lymph nodes. No cardiomegaly or pericardial effusion is seen. OTHER: No additional significant abnormality is seen. IMPRESSION: No acute process.
[2018-12-30] MEDS: IPRATROPIUM-ALBUTEROL 3 ML NEB INHALATION SCH ×2 (19:41→23:52)
[2018-12-30 21:00] LABS: Glucose,Whole Blood 280 mg/dL (75-99)
[2018-12-30] MEDS ORDERED: PARoxetine 10 MG TAB PO SCH (21:00)
[2018-12-30] MEDS ORDERED: CLOBETASOL PROPIONATE TOPICAL PRN (21:03)
[2018-12-30] MEDS ORDERED: KETOCONAZOLE 2% SHAMPOO 1 APPLIC/ML TOPICAL PRN (21:03)
[2018-12-30] MEDS ORDERED: CLOBETASOL PROP 0.05% CR 15GM TOPICAL PRN (21:03)
[2018-12-30] MEDS: INSULIN ASPART (NovoLOG) 100 UNIT/ML VIAL SQ SCH ×2 (21:58→22:10)
[2018-12-30] MEDS: methylPREDNISolone SOD SUCCI 125 MG/2 ML VIAL IV SCH (22:00)
[2018-12-30] MEDS: glipiZIDE 10 MG TAB PO SCH (22:09)
[2018-12-30] MEDS: metFORMIN 500 MG TAB PO SCH (22:09)
[2018-12-30] MEDS: PARoxetine 20 MG TAB PO SCH (22:09)
[2018-12-30] MEDS: PANTOPRAZOLE 40 MG TABLET PO SCH (22:09)
[2018-12-30] MEDS: PRAVASTATIN SODIUM 20 MG TAB PO SCH (22:10)
[2018-12-30] MEDS: risperiDONE ODT 2 MG TAB PO SCH (22:58)
[2018-12-30] MEDS: SODIUM CHLORIDE 0.9% 1,000 ML IV SCH (23:00)
[2018-12-31] MEDS: methylPREDNISolone SOD SUCCI 125 MG/2 ML VIAL IV SCH ×4 (00:12→18:32)
[2018-12-31 02:40] LABS: Glucose,Whole Blood 239 mg/dL (75-99)
[2018-12-31] MEDS: IPRATROPIUM-ALBUTEROL 3 ML NEB INHALATION SCH ×6 (03:47→23:53)
[2018-12-31 07:14] LABS: Glucose,Whole Blood 234 mg/dL (75-99)
[2018-12-31] MEDS ORDERED: OMEPRAZOLE 40 MG PO SCH (07:30)
[2018-12-31] MEDS ORDERED: CLOBETASOL PROP 0.05% CR 15GM TOPICAL SCH (09:00)
[2018-12-31] MEDS ORDERED: NON FORMULARY DRUG (Omega-3 Fatty Acids/Fish Oil [Fish Oil 1,000 Mg Softgel] 1 CAP) PO SCH (09:00)
[2018-12-31] MEDS ORDERED: CLOBETASOL PROPIONATE TOPICAL SCH (09:00)
[2018-12-31] MEDS: glipiZIDE 10 MG TAB PO SCH ×2 (09:15→21:58)
[2018-12-31] MEDS: HYDROCHLOROTHIAZIDE 25 MG TAB PO SCH (09:15)
[2018-12-31] MEDS: FENOFIBRATE 160 MG TAB PO SCH (09:15)
[2018-12-31] MEDS: metFORMIN 500 MG TAB PO SCH ×2 (09:15→18:31)
[2018-12-31] MEDS: CHOLECALCIFEROL 1,000 UNIT TAB PO SCH (09:15)
[2018-12-31] MEDS: FAMOTIDINE 20 MG TAB PO SCH (09:15)
[2018-12-31] MEDS: LOSARTAN 50 MG TAB PO SCH (09:16)
[2018-12-31] MEDS: INSULIN ASPART (NovoLOG) 100 UNIT/ML VIAL SQ SCH ×4 (09:16→21:59)
[2018-12-31] MEDS: PANTOPRAZOLE 40 MG TABLET PO SCH ×2 (09:16→18:31)
[2018-12-31] MEDS: LORATADINE 10 MG TAB PO SCH (09:16)
[2018-12-31] MEDS: LINAGLIPTIN 5 MG TABLET PO SCH (09:16)
[2018-12-31] MEDS: DILTIAZEM CD 240 MG CAP.ER.24H PO SCH (09:19)
[2018-12-31 12:17] LABS: Glucose,Whole Blood 255 mg/dL (75-99)
--- NOTE | 2018-12-31 14:28 | P.CNPUL ---
History of Present Illness Consult date: 12/31/18 Requesting physician: Drake Carvajal Reason for consult: COPD Chief complaint: Shortness of breath History of present illness: This is a very pleasant 48-year-old gentleman who follows with Dr. Jc as his primary care physician. He has a history of eczema, diabetes mellitus, gastroesophageal reflux disease, hyperlipidemia, hypertension, chronic bronchial asthma, obstructive sleep apnea utilizing CPAP in the outpatient setting, morbid obesity. He had been seen by Dr. Paris in the past. His AHI was 134. He is on the CPAP at 18 cm of water. He also has chronic obstructive pulmonary disease with chronic and ongoing tobacco dependence. He presented here yesterday from his PCPs office after having significant shortness of breath that had started 2-3 days prior. He was given a breathing treatment in the office without much improvement and sent here by EMS. He is seen today in consultation on the regular medical floor. He is awake and alert in no acute distress. He did use CPAP throughout the night at 18 cm of water and 20% FiO2. He is breathing better today compared to yesterday. Currently maintaining O2 saturations in the upper 90s on 4 L/m per nasal cannula. He's been afebrile. Hemodynamically stable. White count 9.2. Hemoglobin 16.1. D-dimer 0.35. Creatinine 0.63. Potassium 4.5. Bicarb 23. Troponin negative. ProBNP 12. Chest x-ray and CT angiograms revealed no acute pulmonary process. He had been initiated on DuoNeb inhalations and IV Solu-Medrol. Review of Systems REVIEW OF SYSTEMS: CONSTITUTIONAL: Denies any recent significant weight loss or weight gain. EYES: Denies change in vision. EARS, NOSE, MOUTH, THROAT: Denies headaches, denies sore throat. CARDIOVASCULAR: Denies chest pain, palpitations or syncopal episodes. RESPIRATORY: Positive for shortness of breath, cough, congestion no hemoptysis. GASTROINTESTINAL: Denies change in appetite, denies abdominal pain GENITOURINARY: Denies hematuria, denies infections. MUSKULOSKELETAL: Denies pain, denies swelling. INTEGUMENTARY: Denies rash, denies eczema. NEUROLOGICAL: Denies recent memory loss, no recent seizure activity. PSYCHIATRIC: Denies anxiety, denies depression. HEMATOLOGIC/LYMPHATIC: Denies anemia, denies enlarged lymph nodes. Past Medical History Past Medical History: Asthma, Diabetes Mellitus, GERD/Reflux, Hyperlipidemia, Hypertension, Pneumonia, Sleep Apnea/CPAP/BIPAP Additional Past Medical History / Comment(s): Pt recently admitted to [facility] on 08/05/18 with hypoxia, respiratory failure 2ndary to COPD and CAP. Other hx: NIDDM type II, KATHARINE with Cpap with oxygen History of Any Multi-Drug Resistant Organisms: None Reported Past Surgical History: Tonsillectomy Past Anesthesia/Blood Transfusion Reactions: No Reported Reaction Additional Past Anesthesia/Blood Transfusion Reaction / Comment(s): Pt has clausterphobia Past Psychological History: Anxiety, Depression Additional Psychological History / Comment(s): Patient resides with his spouse and 2 children, one of whom is an adult. Patient sees a therapist and has a psychiatrist. He uses no assistive device. He drives. He has a nebulizer and a Cpap. Smoking Status: Current every day smoker Past Alcohol Use History: None Reported Additional Past Alcohol Use History / Comment(s): Pt started smoking in 1985 and was a 2 ppd smoker until lately-now cut down to less than a half a ppd. Past Drug Use History: None Reported - Past Family History Mother Family Medical History: Coronary Artery Disease (CAD) Additional Family Medical History / Comment(s): Father Family Medical History: AFIB Additional Family Medical History / Comment(s): Sister(s) Family Medical History: Neurologic Disorder Additional Family Medical History / Comment(s): 1 sister had mental disorder - . 1 sister has osteoporosis Brother(s) Family Medical History: AFIB Medications and Allergies Home Medications Medication Instructions Recorded Confirmed Type ALPRAZolam [Xanax] 1 mg PO BID PRN 03/17/15 12/30/18 History Cholecalciferol [Vitamin D3 (25 4,000 unit PO QAM 03/17/15 12/30/18 History Mcg = 1000 Iu)] Diltiazem HCl [Cardizem] 240 mg PO QAM 03/17/15 12/30/18 History Gemfibrozil [Lopid] 600 mg PO BID 03/17/15 12/30/18 History Pravastatin Sodium [Pravachol] 20 mg PO HS 03/17/15 12/30/18 History metFORMIN HCL 1,000 mg PO BID 03/17/15 12/30/18 History risperiDONE [risperiDONE ODT] 2 mg PO HS 03/17/15 12/30/18 History Cetirizine HCl 10 mg PO DAILY PRN 08/05/18 12/30/18 History Ketoconazole 2% Shampoo [Nizoral] 1 applic TOPICAL MOWEFR PRN 08/05/18 12/30/18 History [place]-3 Fatty Acids/Fish Oil [Fish 1 cap PO DAILY 08/05/18 12/30/18 History Oil 1,000 mg Softgel] PARoxetine HCL [Paxil Cr] 37.5 mg PO HS 08/05/18 12/30/18 History Albuterol Sulfate [Albuterol 1 puff INHALATION RT-Q4H PRN 09/03/18 12/30/18 History Sulfate Hfa] Clobetasol Propionate [Temovate 1 applic TOPICAL DAILY PRN 12/30/18 12/30/18 History 0.05% Cream] Losartan Potassium 100 mg PO DAILY 12/30/18 12/30/18 History PARoxetine HCL [Paxil Cr] 25 mg PO HS 12/30/18 12/30/18 History Pantoprazole [Protonix] 40 mg PO BID 12/30/18 12/30/18 History glipiZIDE [Glucotrol XL] 20 mg PO HS 12/30/18 12/30/18 History Allergies Allergy/AdvReac Type Severity Reaction Status Date / Time Sulfa (Sulfonamide Allergy Rash/Hives Verified 12/30/18 15:03 Antibiotics) tamsulosin [From Flomax] AdvReac LETHARGIC Verified 12/30/18 15:10 Physical Exam Vitals: Vital Signs Temp Pulse Pulse Resp BP BP Pulse Ox 12/31/18 11:52 92 12/31/18 11:40 90 12/31/18 07:37 94 12/31/18 07:27 92 12/31/18 07:00 84 18 144/78 98 12/31/18 04:02 96 12/31/18 03:52 97 12/31/18 03:47 98 12/31/18 00:06 84 12/30/18 23:53 88 12/30/18 21:00 97.8 F 86 20 146/69 91 L 12/30/18 19:55 98 12/30/18 19:40 97 92 L 12/30/18 19:30 98 20 135/78 93 L 12/30/18 17:48 99.2 F 87 18 132/72 93 L 12/30/18 15:36 97 12/30/18 15:29 101 H 12/30/18 14:55 98.5 F 99 20 145/85 86 L Intake and Output 12/30/18 12/31/18 12/31/18 22:59 06:59 14:59 Intake Total 600 Balance 600 Intake: Oral 600 Other: Voiding Method Toilet # Voids 1 Weight 150.23 kg GENERAL EXAM: Alert, pleasant 48-year-old gentleman, morbidly obese, comfortable in no apparent distress. On 4 L nasal cannula alternating with CPAP. HEAD: Normocephalic. EYES: Normal reaction of pupils, equal size. NOSE: Clear with pink turbinates. THROAT: Crowding of the posterior pharynx. No erythema or exudates. NECK: Short. No masses, no JVD. CHEST: No chest wall deformity. LUNGS: Equal air entry with end expiratory wheeze, diminished. CVS: S1 and S2 normal with no audible murmur, regular rhythm. ABDOMEN: No hepatosplenomegaly, normal bowel sounds, no guarding or rigidity. SPINE: No scoliosis or deformity SKIN: No rashes CENTRAL NERVOUS SYSTEM: No focal deficits, tone is normal in all 4 extremities. EXTREMITIES: There is no peripheral edema. No clubbing, no cyanosis. Peripheral pulses are intact. Results - Laboratory Findings CBC and BMP: 12/30/18 14:45 12/30/18 14:45 PT/INR, D-dimer PT 10.0 sec (9.0-12.0) 12/30/18 14:45 INR 0.9 (<1.2) 12/30/18 14:45 D-Dimer 0.35 mg/L FEU (<0.60) 12/30/18 14:45 Abnormal lab findings: Abnormal Labs 12/30/18 12/30/18 12/31/18 14:45 20:56 02:38 Creatinine 0.63 L Glucose 168 H POC Glucose (mg/dL) 280 H 239 H 12/31/18 12/31/18 07:10 12:15 Creatinine Glucose POC Glucose (mg/dL) 234 H 255 H - Diagnostic Findings Chest x-ray: image reviewed CT scan - chest: image reviewed (No acute pulmonary process) Assessment and Plan Assessment: Impression: #1 Acute on chronic hypoxic respiratory failure secondary to an acute exacerbation of chronic obstructive pulmonary disease. #2 Chronic and ongoing tobacco dependence. #3 Morbid obesity. #4 Obstructive sleep apnea utilizing CPAP in the outpatient setting at 18 cm of water. Initial AHI 134. #5 Diabetes mellitus, type II. #6 Hypertension. #7 Hyperlipidemia. #8 Gastroesophageal reflux disease. Plan: The patient was seen and evaluated by Dr. Paris. Chest x-ray, CAT scans and labs all reviewed. The patient is improved today as compared to yesterday. We'll continue the current treatment plan. He would benefit from a follow-up in our office in 1-2 weeks' time where we will perform full pulmonary function testing to evaluate the severity of his COPD. He is encouraged to continue to utilize his CPAP nightly. We will continue to follow and make further recommendations based on his clinical status. I, the cosigning physician, performed a history & physical examination of the patient. Lungs sounds with bilateral end expiratory wheeze, diminished. Maintaining good O2 saturations in the 90s on 4 L/m per nasal cannula. I discussed the assessment and plan of care with my nurse practitioner, Delicia Vaughn. I attest to the above note as dictated by her. Time with Patient: Greater than 30
[2018-12-31] MEDS: SODIUM CHLORIDE 0.9% 1,000 ML IV SCH (15:03)
[2018-12-31 17:13] LABS: Glucose,Whole Blood 293 mg/dL (75-99)
[2018-12-31] MEDS ORDERED: KETOCONAZOLE 2% SHAMPOO 1 APPLIC/ML TOPICAL SCH (18:00)
[2018-12-31 20:10] LABS: Glucose,Whole Blood 323 mg/dL (75-99)
--- NOTE | 2018-12-31 20:10 | P.HPIM ---
History of Present Illness H&P Date: 12/31/18 Chief Complaint: Short of breath History of presenting complaint: This is a pleasant 48-year-old patient of Dr. Darnell Jc from [facility] on [address]. Chronic stable medical conditions include diabetes, GERD, hyperlipidemia, hypertension, obstructive sleep apnea and does use a CPAP. Patient is a long-standing smoker. Patient presented with 3 days of increasing shortness of breath and wheezing. Tired rundown. Congested in the chest. No fever or chills. Appetite is okay. No change in bowel habits. Diagnosed with COPD exacerbation. Started on bronchodilators and steroids and admitted for the same. Apparently has home oxygen Review of systems: GEN.: Tired EYES: None HEENT: None NECK: None RESPIRATORY: As above CARDIOVASCULAR: None GASTROINTESTINAL: None GENITOURINARY: None MUSCULOSKELETAL: Pain in the joints LYMPHATICS: None HEMATOLOGICAL: None PSYCHIATRY: Some anxiety NEUROLOGICAL: None Social history: . 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 No alcohol. Smoking for close to 34 years. Up to 2 packs a day. Now down to about half to three- quarter pack per day Physical examination: VITAL SIGNS: 98.5, 99, 20, 145/85, 86% on 4 L GENERAL: BMI 47.5, sitting up, short of breath. EYES: Pupils equal. Conjunctiva normal. HEENT: External appearance of nose and ears normal, oral cavity grossly normal. NECK: JVD not raised; masses not palpable. HEART: First and second heart sounds are normal; minimal edema. LUNGS: Respiratory rate increased, diminished breath sounds prolonged expiration and wheezing. ABDOMEN: Soft, nontender, liver spleen not palpable, no masses palpable. PSYCH: Alert and oriented x3; mood and affect but anxiousl. NEUROLOGICAL: Cranial nerves grossly intact; no facial asymmetry, power and sensation grossly intact. LYMPHATICS: No lymph nodes palpable in the axilla and neck INVESTIGATIONS, reviewed in the clinical context: White count 9.2 hemoglobin 16.1 potassium 4.5 creatinine 0.63 Accu-Cheks 280, 239 Troponin negative ProBNP 12 Chest x-ray film personally reviewed by me-questionable infiltrate Computed tomography scan of the chest-no evidence of PE or infiltrate Assessment: -Acute COPD exacerbation and a current smoker -Chronic nicotine dependence patient cigarette smoker -Acute on chronic hypoxic respiratory failure from outlying COPD -Morbid obesity BMI 47.5 -Diabetes mellitus type 2, uncontrolled with hypoglycemia -GERD -Hyperlipidemia -Essential hypertension -Obstructive sleep apnea does not use CPAP machine Plan: -Patient started on nebulized bronchodilators every 4 hours. Also IV Solu- Medrol was added. Home medications resumed. Accu-Cheks will be closely f ollowed. Care was discussed with the patient. Smoke cessation counseling: This was done with the patient. Nicotine patch is being given. More than 3 minutes was spent for this Past Medical History Past Medical History: Asthma, Diabetes Mellitus, GERD/Reflux, Hyperlipidemia, Hypertension, Pneumonia, Sleep Apnea/CPAP/BIPAP Additional Past Medical History / Comment(s): Pt recently admitted to [facility] on 08/05/18 with hypoxia, respiratory failure 2ndary to COPD and CAP. Other hx: NIDDM type II, KATHARINE with Cpap with oxygen History of Any Multi-Drug Resistant Organisms: None Reported Past Surgical History: Tonsillectomy Past Anesthesia/Blood Transfusion Reactions: No Reported Reaction Additional Past Anesthesia/Blood Transfusion Reaction / Comment(s): Pt has clausterphobia Past Psychological History: Anxiety, Depression Additional Psychological History / Comment(s): Patient resides with his spouse and 2 children, one of whom is an adult. Patient sees a therapist and has a psy chiatrist. He uses no assistive device. He drives. He has a nebulizer and a Cpap. Smoking Status: Current every day smoker Past Alcohol Use History: None Reported Additional Past Alcohol Use History / Comment(s): Pt started smoking in 1985 and was a 2 ppd smoker until lately-now cut down to less than a half a ppd. Past Drug Use History: None Reported - Past Family History Mother Family Medical History: Coronary Artery Disease (CAD) Additional Family Medical History / Comment(s): Father Family Medical History: AFIB Additional Family Medical History / Comment(s): Sister(s) Family Medical History: Neurologic Disorder Additional Family Medical History / Comment(s): 1 sister had mental disorder - . 1 sister has osteoporosis Brother(s) Family Medical History: AFIB Medications and Allergies Home Medications Medication Instructions Recorded Confirmed Type ALPRAZolam [Xanax] 1 mg PO BID PRN 03/17/15 12/30/18 History Cholecalciferol [Vitamin D3 (25 4,000 unit PO QAM 03/17/15 12/30/18 History Mcg = 1000 Iu)] Diltiazem HCl [Cardizem] 240 mg PO QAM 03/17/15 12/30/18 History Gemfibrozil [Lopid] 600 mg PO BID 03/17/15 12/30/18 History Pravastatin Sodium [Pravachol] 20 mg PO HS 03/17/15 12/30/18 History metFORMIN HCL 1,000 mg PO BID 03/17/15 12/30/18 History risperiDONE [risperiDONE ODT] 2 mg PO HS 03/17/15 12/30/18 History Cetirizine HCl 10 mg PO DAILY PRN 08/05/18 12/30/18 History Ketoconazole 2% Shampoo [Nizoral] 1 applic TOPICAL MOWEFR PRN 08/05/18 12/30/18 History [place]-3 Fatty Acids/Fish Oil [Fish 1 cap PO DAILY 08/05/18 12/30/18 History Oil 1,000 mg Softgel] PARoxetine HCL [Paxil Cr] 37.5 mg PO HS 08/05/18 12/30/18 History Albuterol Sulfate [Albuterol 1 puff INHALATION RT-Q4H PRN 09/03/18 12/30/18 History Sulfate Hfa] Clobetasol Propionate [Temovate 1 applic TOPICAL DAILY PRN 12/30/18 12/30/18 History 0.05% Cream] Losartan Potassium 100 mg PO DAILY 12/30/18 12/30/18 History PARoxetine HCL [Paxil Cr] 25 mg PO HS 12/30/18 12/30/18 History Pantoprazole [Protonix] 40 mg PO BID 12/30/18 12/30/18 History glipiZIDE [Glucotrol XL] 20 mg PO HS 12/30/18 12/30/18 History Allergies Allergy/AdvReac Type Severity Reaction Status Date / Time Sulfa (Sulfonamide Allergy Rash/Hives Verified 12/30/18 15:03 Antibiotics) tamsulosin [From Flomax] AdvReac LETHARGIC Verified 12/30/18 15:10 Physical Exam Vitals: Vital Signs Temp Pulse Pulse Resp BP BP Pulse Ox 12/31/18 07:37 94 12/31/18 07:27 92 12/31/18 07:00 84 18 144/78 98 12/31/18 04:02 96 12/31/18 03:52 97 12/31/18 03:47 98 12/31/18 00:06 84 12/30/18 23:53 88 12/30/18 21:00 97.8 F 86 20 146/69 91 L 12/30/18 19:55 98 12/30/18 19:40 97 92 L 12/30/18 19:30 98 20 135/78 93 L 12/30/18 17:48 99.2 F 87 18 132/72 93 L 12/30/18 15:36 97 12/30/18 15:29 101 H 12/30/18 14:55 98.5 F 99 20 145/85 86 L Intake and Output 12/30/18 12/31/18 12/31/18 22:59 06:59 14:59 Intake Total 300 Balance 300 Intake: Oral 300 Other: Voiding Method Toilet # Voids 1 Weight 150.23 kg Results CBC & Chem 7: 12/30/18 14:45 12/30/18 14:45 Labs: Abnormal Lab Results - Last 24 Hours (Table) 12/30/18 12/30/18 12/31/18 Range/Units 14:45 20:56 02:38 Creatinine 0.63 L (0.66-1.25) mg/dL Glucose 168 H (74-99) mg/dL POC Glucose (mg/dL) 280 H 239 H (75-99) mg/dL 12/31/18 Range/Units 07:10 Creatinine (0.66-1.25) mg/dL Glucose (74-99) mg/dL POC Glucose (mg/dL) 234 H (75-99) mg/dL Thrombosis Risk Factor Assmnt - Choose All That Apply Any of the Below Risk Factors Present?: Yes Each Factor Represents 1 point: Age 41-60 years, Obesity (BMI >25) Other Risk Factors: No Other congenital or acquired thrombophilia - If yes, enter type in comment: No Thrombosis Risk Factor Assessment Total Risk Factor Score: 2 Thrombosis Risk Factor Assessment Level: Low Risk
[2018-12-31] MEDS ORDERED: INSULIN DETEMIR (LEVEMIR) 100 UNIT/ML SYR SQ SCH (21:00)
[2018-12-31 21:32] LABS: Hemoglobin A1C 8.2 % (4.0-6.0)
[2018-12-31] MEDS: ENOXAPARIN 40 MG/0.4 ML SYRINGE SQ SCH (21:58)
[2018-12-31] MEDS: PARoxetine 20 MG TAB PO SCH (21:58)
[2018-12-31] MEDS: PRAVASTATIN SODIUM 20 MG TAB PO SCH (21:58)
[2018-12-31] MEDS: NICOTINE 14MG/24HR PATCH TRANSDERM SCH ×2 (21:58→22:08)
[2018-12-31] MEDS: risperiDONE ODT 2 MG TAB PO SCH (21:58)
[2019-01-01] MEDS: methylPREDNISolone SOD SUCCI 40 MG/ML 1 ML VIAL IV SCH ×2 (00:29→07:52)
[2019-01-01] MEDS: IPRATROPIUM-ALBUTEROL 3 ML NEB INHALATION SCH ×3 (04:30→11:32)
[2019-01-01 07:05] LABS: Glucose,Whole Blood 301 mg/dL (75-99)
[2019-01-01] MEDS: INSULIN ASPART (NovoLOG) 100 UNIT/ML VIAL SQ SCH ×2 (07:13→12:36)
[2019-01-01 07:15] VITALS: BP 163/98; RESP 20; TEMP 97
[2019-01-01] MEDS: glipiZIDE 10 MG TAB PO SCH (07:52)
[2019-01-01] MEDS: LOSARTAN 50 MG TAB PO SCH (07:52)
[2019-01-01] MEDS: NICOTINE 14MG/24HR PATCH TRANSDERM SCH ×2 (07:52→07:59)
[2019-01-01] MEDS: LORATADINE 10 MG TAB PO SCH (07:53)
[2019-01-01] MEDS: FENOFIBRATE 160 MG TAB PO SCH (07:53)
[2019-01-01] MEDS: metFORMIN 500 MG TAB PO SCH (07:53)
[2019-01-01] MEDS: PANTOPRAZOLE 40 MG TABLET PO SCH (07:53)
[2019-01-01] MEDS: LINAGLIPTIN 5 MG TABLET PO SCH (07:53)
[2019-01-01] MEDS: ENOXAPARIN 40 MG/0.4 ML SYRINGE SQ SCH (07:53)
[2019-01-01] MEDS: HYDROCHLOROTHIAZIDE 25 MG TAB PO SCH (07:53)
[2019-01-01] MEDS: CHOLECALCIFEROL 1,000 UNIT TAB PO SCH (07:53)
[2019-01-01] MEDS: FAMOTIDINE 20 MG TAB PO SCH (07:53)
[2019-01-01] MEDS: DILTIAZEM CD 240 MG CAP.ER.24H PO SCH (07:56)
[2019-01-01] MEDS ORDERED: BUDESONIDE 1 MG/2 ML NEBU INHALATION SCH (08:00)
[2019-01-01 11:44] LABS: Glucose,Whole Blood 243 mg/dL (75-99)
[2019-01-01 11:46] VITALS: PULSE 82
--- NOTE | 2019-01-01 21:03 | P.DS ---
Providers Date of admission: 12/30/18 18:53 Expected date of discharge: 01/01/19 Attending physician: Drake Carvajal Consults: 12/30/18 16:39 Consult Physician Routine Consulting Provider: Erika Paris Consult Reason/Comments: COPD exacerbation Do you want consulting provider notified?: Yes Primary care physician: Eris Jc [facility] Course: Chief Complaint: Short of breath History of presenting complaint: This is a pleasant 48-year-old patient of Dr. Darnell Jc from [facility] on [address] Chronic stable medical conditions include diabetes, GERD, hyperlipidemia, hypertension, obstructive sleep apnea and does use a CPAP. Patient is a long-standing smoker. Patient presented with 3 days of increasing shortness of breath and wheezing. Tired rundown. Congested in the chest. No fever or chills. Appetite is okay. No change in bowel habits. Diagnosed with COPD exacerbation. Started on bronchodilators and steroids and admitted for the same. Apparently has home oxygen Responded well to IV steroids, bronchodilators,. Patient's counseling extensively about smoke cessation. Patient doing much better. Breathing better. Up and about. Smoke cessation again discussed at length today. Discussion discharge planning more than 35 minutes Consultation: Dr. Paris from pulmonary Physical examination: VITAL SIGNS: 97, 87, 20, 163/98, GENERAL: Sitting on edge of bed, breathing better EYES: Pupils equal. Conjunctiva normal. HEENT: External appearance of nose and ears normal, oral cavity grossly normal. NECK: JVD not raised; masses not palpable. HEART: First and second heart sounds are normal; minimal edema. LUNGS: Respiratory rate increased, diminished breath sounds prolonged expiration. ABDOMEN: Soft, nontender, liver spleen not palpable, no masses palpable. PSYCH: Alert and oriented x3; mood and affect but anxiousl. INVESTIGATIONS, reviewed in the clinical context: White count 9.2 hemoglobin 16.1 potassium 4.5 creatinine 0.63 Accu-Cheks 280, 239 Troponin negative ProBNP 12 Chest x-ray film personally reviewed by me-questionable infiltrate Computed tomography scan of the chest-no evidence of PE or infiltrate Discharge diagnosis: -Acute COPD exacerbation and a current smoker -Chronic nicotine dependence patient cigarette smoker -Acute on chronic hypoxic respiratory failure from outlying COPD -Morbid obesity BMI 47.5 -Diabetes mellitus type 2, uncontrolled with hypoglycemia -GERD -Hyperlipidemia -Essential hypertension -Obstructive sleep apnea does not use CPAP machine Disposition: Home Patient Condition at Discharge: Stable Plan - Discharge Summary Discharge Rx Participant: No New Discharge Prescriptions: New Ipratropium-Albuterol Nebulize [Duoneb 0.5 mg-3 mg/3 ml Soln] 3 ml INHALATION TID #90 ampul.neb Nicotine 14Mg/24Hr Patch [Habitrol] 1 patch TRANSDERM DAILY #14 patch predniSONE 10 mg PO DAILY #30 tab Continue risperiDONE [risperiDONE ODT] 2 mg PO HS ALPRAZolam [Xanax] 1 mg PO BID PRN PRN Reason: Anxiety metFORMIN HCL 1,000 mg PO BID Pravastatin Sodium [Pravachol] 20 mg PO HS Gemfibrozil [Lopid] 600 mg PO BID Cholecalciferol [Vitamin D3 (25 Mcg = 1000 Iu)] 4,000 unit PO QAM Diltiazem HCl [Cardizem] 240 mg PO QAM PARoxetine HCL [Paxil Cr] 37.5 mg PO HS Ketoconazole 2% Shampoo [Nizoral] 1 applic TOPICAL MOWEFR PRN PRN Reason: itching [place]-3 Fatty Acids/Fish Oil [Fish Oil 1,000 mg Softgel] 1 cap PO DAILY Clobetasol Propionate [Temovate 0.05% Cream] 1 applic TOPICAL DAILY PRN PRN Reason: iching glipiZIDE [Glucotrol XL] 20 mg PO HS Losartan Potassium 100 mg PO DAILY Pantoprazole [Protonix] 40 mg PO BID PARoxetine HCL [Paxil Cr] 25 mg PO HS Changed Cetirizine HCl 5 mg PO BID #0 Discontinued Albuterol Sulfate [Albuterol Sulfate Hfa] 1 puff INHALATION RT-Q4H PRN PRN Reason: Shortness Of Breath Discharge Medication List ALPRAZolam [Xanax] 1 mg PO BID PRN 03/17/15 [History] Cholecalciferol [Vitamin D3 (25 Mcg = 1000 Iu)] 4,000 unit PO QAM 03/17/15 [History] Diltiazem HCl [Cardizem] 240 mg PO QAM 03/17/15 [History] Gemfibrozil [Lopid] 600 mg PO BID 03/17/15 [History] Pravastatin Sodium [Pravachol] 20 mg PO HS 03/17/15 [History] metFORMIN HCL 1,000 mg PO BID 03/17/15 [History] risperiDONE [risperiDONE ODT] 2 mg PO HS 03/17/15 [History] Ketoconazole 2% Shampoo [Nizoral] 1 applic TOPICAL MOWEFR PRN 08/05/18 [History] [place]-3 Fatty Acids/Fish Oil [Fish Oil 1,000 mg Softgel] 1 cap PO DAILY 08/05/18 [History] PARoxetine HCL [Paxil Cr] 37.5 mg PO HS 08/05/18 [History] Clobetasol Propionate [Temovate 0.05% Cream] 1 applic TOPICAL DAILY PRN 12/30/18 [History] Losartan Potassium 100 mg PO DAILY 12/30/18 [History] PARoxetine HCL [Paxil Cr] 25 mg PO HS 12/30/18 [History] Pantoprazole [Protonix] 40 mg PO BID 12/30/18 [History] glipiZIDE [Glucotrol XL] 20 mg PO HS 12/30/18 [History] Cetirizine HCl 5 mg PO BID #0 01/01/19 [Rx] Ipratropium-Albuterol Nebulize [Duoneb 0.5 mg-3 mg/3 ml Soln] 3 ml INHALATION TID #90 ampul.neb 01/01/19 [Rx] Nicotine 14Mg/24Hr Patch [Habitrol] 1 patch TRANSDERM DAILY #14 patch 01/01/19 [Rx] predniSONE 10 mg PO DAILY #30 tab 01/01/19 [Rx] Follow up Appointment(s)/Referral(s): Eris Jc MD [Primary Care Provider] - 3 Days (client will make own appt) Erika Paris MD [STAFF PHYSICIAN] - 1 Week (client will make own appt) Patient Instructions/Handouts: COPD (Chronic Obstructive Pulmonary Disease) (DC) Discharge Disposition: HOME SELF-CARE
== END 2019-01-01 13:37 | disposition home or self-care (01) ==
LOC: EC 14:31 → 4MS4W 18:53
PROVIDERS: ADMIT Hospitalist; ATTEND Hospitalist
DX: J44.1 Chronic obstructive pulmonary disease with (acute) exacerbation (principal); F17.210 Nicotine dependence, cigarettes, uncomplicated; J80 Acute respiratory distress syndrome; E66.01 Morbid (severe) obesity due to excess calories; Z68.42 Body mass index [BMI] 45.0-49.9, adult; E11.649 Type 2 diabetes mellitus with hypoglycemia without coma; K21.9 Gastro-esophageal reflux disease without esophagitis; E78.5 Hyperlipidemia, unspecified; I10 Essential (primary) hypertension; G47.33 Obstructive sleep apnea (adult) (pediatric); F41.9 Anxiety disorder, unspecified; F32.9 Major depressive disorder, single episode, unspecified; L30.9 Dermatitis, unspecified; F40.240 Claustrophobia; Z99.81 Dependence on supplemental oxygen; Z87.01 Personal history of pneumonia (recurrent); Z79.899 Other long term (current) drug therapy; Z79.84 Long term (current) use of oral hypoglycemic drugs; Z88.2 Allergy status to sulfonamides; Z88.8 Allergy status to other drugs, medicaments and biological substances; Z82.49 Family history of ischemic heart disease and other diseases of the circulatory system; Z82.62 Family history of osteoporosis; Z81.8 Family history of other mental and behavioral disorders
CPT/HCPCS: 96376 ×2; 96375; 96372 ×2; 96365; 99291; 36415; 94660 ×3; 94640 ×6; 94760 ×3; 93005; 85379; 83880; 80053; 82550; 83735; 84484; 85025; 85610; 85730; 83036; 71046; 71275; G0378 ×3; J2920; J2930; J1650 ×2; J3475; Q9967